=== PATIENT | female | born 1990 | race Caucasian/White ===

== ENCOUNTER → 2019-10-25 11:59 | Outpatient (CLI) | payer SELFPAY ==
[2019-10-30 17:43] LABS: HPV Reflexed? NOT INDICATED
== END ==
PROVIDERS: Visit Provider Obstetrics & Gynecology
DX: Z12.4 Encounter for screening for malignant neoplasm of cervix (principal)
CPT/HCPCS: 88175; G0145

== ENCOUNTER 2019-12-24 20:00 | Inpatient (IN) | payer MEDICAID, SELFPAY ==
[2019-12-24 20:02] VITALS: BP 133/76; PULSE 104; RESP 15; TEMP 36.8; O2SAT 100; BMI 20.5
--- NOTE | 2019-12-24 20:28 | US_ITS ---
STUDY: FIRST TRIMESTER OBSTETRICAL ULTRASOUND REASON FOR EXAM: Female, 29 years old BLEEDING W/ [place] [address] LMP: October 19, 2019 TECHNIQUE: Transvaginal TECHNICAL QUALITY: Adequate. PRIOR ULTRASOUND: None. FINDINGS: There is no demonstrated intrauterine gestational sac. The uterus measures 7.3 x 5.1 x 4.7 cm. The endometrial stripe is echogenic and measures 2.0 cm. There is complex fluid within the region of the right adnexa. The right ovary is not clearly visualized. The left ovary measures 6.7 x 5.3 x 3.4 cm. Within the left adnexa there is a round echogenic focus measuring 4.4 x 5.1 x 3.5 cm with peripheral vascularity and a central anechoic irregular focus. US/Transvaginal w/Preg US IMPRESSION: Findings highly suspicious for an ectopic within the left adnexa. Complex free fluid concerning for hemoperitoneum. N.B. : The above information has been verbally conveyed by Ellen Dockery MD to Jeanne Madrid MD, on 12/24/2019 23:16:54 (ET). Electronically Signed: Ellen Dockery MD at 23:18 EST Tel , Service support ,
--- NOTE | 2019-12-24 20:31 | ED.VISSUMM ---
- ER Visit Summary Date of Service: 12/24/19 Chief Complaint: Vaginal bleeding and History of Present Illness: The patient is a 29 F presenting with vaginal bleeding in . She started spotting around 11 AM this morning. She is approximately 10 weeks . She is G3, P0, Ab2. She states she has miscarried around 9 to 10 weeks previously. She has never been in the hospital when she miscarried. No history of D&C. She states her blood type is O- but she was told she does not need RhoGam because her significant other's blood type is A negative. Physical Examination: Vitals are stable. Patient is afebrile. Alert no acute distress. HEENT exam is unremarkable. Neck is supple. Lungs are clear and equal bilaterally. Heart is regular and tachycardic Abdomen is soft diffuse abdominal tenderness with voluntary guarding, no rebound Extremities are unremarkable. Skin is warm and dry. No focal neurologic deficit. Remainder of exam is unremarkable. Emergency Department Course and Treatment: Patient was given morphine, Zofran IV. [place] [id number]. Blood type O-. Pelvic ultrasound shows findings highly suspicious for an ectopic within the left adnexa. Complex free fluid concerning for hemoperitoneum. Discussed with Dr. Orozco. He will evaluate the patient in the ED. 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 It may contain incorrect words, spelling, and punctuation that were not noted in review of the chart prior to signing ED Disposition - Plan for ED Patient: Referrals: NOT,DEFINED [NON-STAFF] -
[2019-12-24] MEDS: Ondansetron 4 MG/2 ML Vial IV (20:48)
[2019-12-24] MEDS: Morphine 4 MG/ML Syringe IV (20:48)
[2019-12-24 20:49] LABS: Absolute Lymphocyte Count 1.66 X10^3/uL (0.83-4.51); Basophil# 0.02 X10^3/uL; Basophil% 0.2 % (0-1); Eosinophils% 1.2 % (0-5); Hematocrit 35.7 % (37-47); Hemoglobin 12.3 g/dL (12.0-15.0); Lymphocyte # 1.66 X10^3/ul (4.0); Mean Corp Hgb Conc 34.5 g/dL (32-36); Mean Corpuscular Hgb 30.6 pg (27.0-32.0); Mean Corpuscular Volume 88.8 fL (81-99); Mean Platelet Vol. 9.9 fl (6.2-12.0); Monocyte# 0.45 X10^3/uL; Monocyte% 5.4 % (0-10); NRBC Flagged by Analyzer 0 % (0-5); Neutrophil # 6.01 X10^3/uL (2.7-7.7); Neutrophil % 72.7 % (47-70); Platelet Count 282 K/mm3 (150-450); RBC Distribution Width CV 12.1 % (11.6-14.6); RBC Distribution Width SD 39.3 fl (35.1-43.9); Red Blood Count 4.02 M/mm3 (4.2-5.4); White Blood Count 8.3 K/mm3 (4.4-11.0)
[2019-12-24 21:35] LABS: hCG Titer Quant., Serum 10058 mIU/mL (1-3)
[2019-12-24 22:02] VITALS: BP 116/73; PULSE 82; RESP 16; O2SAT 100
[2019-12-24] MEDS: 0.9% Normal Saline 1,000 ML 999 ML IV (23:38)
[2019-12-24 23:50] LABS: Anion Gap 9 (5-15); BUN 12 mg/dL (7-18); BUN/Creat Ratio 17.4 RATIO (10-20); Calcium,Total 9.4 mg/dL (8.5-10.1); Chloride 107 mmol/L (98-107); Creatinine, Serum 0.69 mg/dL (0.55-1.02); EST Glomerular Filtration Rate 108 mL/min (>60); Est Glom Filt Rate - Afr Amer 130 mL/min (>60); Glucose 84 mg/dL (74-106); Potassium 3.5 mmol/L (3.5-5.1); Sodium Level 141 mmol/L (136-145)
[2019-12-25] VITALS (18 sets, daily range): BP systolic 102–138; BP diastolic 60–80; PULSE 79–112; RESP 13–20; TEMP 36.4–38.2; O2SAT 97–100; BMI 20.5; BMI 21.1
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
[2019-12-25 02:48] LABS: Mean Corp Hgb Conc 33.3 g/dL (32-36); Mean Corpuscular Hgb 30.5 pg (27.0-32.0); Mean Corpuscular Volume 91.4 fL (81-99); Platelet Count 228 K/mm3 (150-450); RBC Distribution Width CV 12.6 % (11.6-14.6); RBC Distribution Width SD 41.6 fl (35.1-43.9); Red Blood Count 1.97 M/mm3 (4.2-5.4); White Blood Count 22.2 K/mm3 (4.4-11.0)
[2019-12-25 02:49] LABS: Scan Indicated on CBC? Y/N NO
[2019-12-25] MEDS: Ropivacaine 0.5% 30 ML Vial (03:07)
--- NOTE | 2019-12-25 03:12 | PCM.OPRPT ---
Report of Operation Date of Procedure: 12/25/19 Pre-Operative Diagnosis: Ruptured Right Ectopic Post-Operative Diagnosis: Ruptured Right Ectopic and Implantation Left Tube; Bilateral Hydrosalpinx; Adhesions Surgery/Procedure Performed:: Diagnostic Laparoscopy, Removal of Ectopic , Bilateral Salpingectomy, Lysis of Adhesions, Appendectomy (per Bharti) Description of Surgical Findings:: Bilateral 4 to 5 cm hydrosalpinx, rupture of left fallopian tube with hemorrhage and 2 cm bulge approximately 2 cm from the uterine fundus. Large placental tissue collection covering left ovary and left fallopian tube with hemorrhage. Hydrosalpinx of left fallopian tube to 3 to 4 cm. Adhesions of omentum to anterior abdominal wall forming a curtain. Adhesions of appendix to right anterior abdominal wall near the omental adhesion insertion. Approximately 2 L of blood in the abdomen upon entry into the peritoneal cavity. service captain: Yessi Richardson Type of Anesthesia:: General - Endotracheal Anesthesiologist: Dannie Orozco Specimen's removed: Ectopic and portions of bilateral fallopian tubes in pieces. Appendix. Drains: Kenny to straight drain Estimated Blood Loss (mL): 2000 cc Fluids Replaced: Crystalloid and 2 units of packed red blood cells Description of Procedure: Surgeon: Florencio Orozco MD, FACOG Intraoperative Consult: Maximino Hay MD, FACS Indications: This is a 29 year old patient 3 para 0 AB 2 who has the above diagnosis who presented to the emergency room this evening with a ruptured ectopic . Her hemoglobin was 12.2 but quantitative beta-hCG was approximately 10,000. She was in marked pain and ultrasound confirmed a ruptured ectopic . She has been counseled regarding the risk and indications of this procedure including the possibility of bleeding, infection, and injury to surrounding structures such as bowel and bladder and desire that we proceed. All questions were answered to consider the patient well-informed. Procedure: The patient was taken to the operating room where after induction of general anesthesia, she was placed in the dorsolithotomy position and prepped and draped in the usual sterile fashion. The bladder was drained of approximately 50 cc of clear yellow urine with a catheter. Anterior cervix was grasped with the tenaculum. Conn cannula was placed and attention was turned toward the laparoscopic portion of the procedure. Approximately 20 cc of half percent ropivacaine was injected subumbilically, suprapubically and midway between. A 5 mm bladeless trocar was placed subumbilically and intraperitoneal placement confirmed. A marked amount of intraperitoneal blood was noted. After CO2 insufflation was complete, a 5 mm bladeless trocar was introduced suprapubically. This trocar was eventually converted to a 10/12 mm blade less port and a 5 mm blade less port was placed midway between these 2 ports. The above findings were noted. Attempts were made to identify the source of bleeding in the pelvis and it was felt that the majority was coming from the right fallopian tube which had a bulge in the center and it appeared had blown apart in the mid section. Enseal device was used to ligate the mesosalpinx to the uterus. This slowed down the bleeding somewhat but on examination in the cul-de-sac there was noted be a large amount of placental tissue present with bleeding of the left fallopian tube and ovary as well. This tissue was removed in pieces and the cul-de-sac continued to have some oozing. At this point, to get better visualization, the omental adhesions which had been forming a curtain across most of the area were taken down using the Enseal device. It was at this point in time that we discovered that the appendix was densely adhered to the anterior abdominal wall. General surgery was called and we continue to suction remaining blood out of the pelvis. Upon arrival of the general surgeon the appendix was removed and is dictated separately in his note. General surgery continue to look for sources of bleeding as there remained quite a bit of blood in the abdomen. It was felt that any remaining bleeding was confined to the oozing in the cul-de-sac. The bleeding in the cul-de-sac had subsided but was still oozing. FloSeal was used across this area to help with hemostasis and laparoscopic instruments with as much CO2 gas as possible was removed. Incisions were closed with interrupted 4-0 Monocryl suture. Vaginal instruments, which had been placed at the beginning of the case which included a con cannula were removed. A Kenny catheter was placed to help with postoperative management. About three [address]s the way through the procedure the patient's hemoglobin was checked and it was approximately 6.0. Given this 2 units of packed red blood cells were given in the course of the surgery and we plan ICU management postoperatively given that there continues to be some possible oozing at the completion of the procedure. Unfortunately it was necessary to remove both fallopian tubes but they were both badly damaged and both hemorrhaging. Patient tolerated procedure well was taken to recovery room in satisfactory condition sponge instrument and needle counts were all reportedly correct. Estimated blood loss for the case was 2000 cc. There were no apparent complications of the surgery. Specimens to pathology was bilateral tubes and ectopic . Grafts/Implants Used: None - Complications None - Admit VTE Documentation VTE Present on Admission: Yes VTE Mechan Device Prophylaxis: SCD's
[2019-12-25 03:40] LABS: Absolute Lymphocyte Count 0.91 X10^3/uL (0.83-4.51); Absolute Neutrophil Count 13.2 X10^3/uL (2.0-7.7); Basophil# 0.02 X10^3/uL; Basophil% 0.1 % (0-1); Eosinophil# 0.02 X10^3/uL; Eosinophils% 0.1 % (0-5); Hemoglobin 8.3 g/dL (12.0-15.0); Lymphocyte # 0.91 X10^3/ul (4.0); Mean Corp Hgb Conc 33.2 g/dL (32-36); Mean Corpuscular Hgb 29.4 pg (27.0-32.0); Mean Corpuscular Volume 88.7 fL (81-99); Mean Platelet Vol. 9.9 fl (6.2-12.0); Monocyte# 0.82 X10^3/uL; Monocyte% 5.4 % (0-10); NRBC Flagged by Analyzer 0 % (0-5); Neutrophil # 13.21 X10^3/uL (2.7-7.7); Neutrophil % 87.9 % (47-70); Platelet Count 175 K/mm3 (150-450); RBC Distribution Width CV 12.8 % (11.6-14.6); RBC Distribution Width SD 41.2 fl (35.1-43.9); Red Blood Count 2.82 M/mm3 (4.2-5.4); White Blood Count 15.1 K/mm3 (4.4-11.0)
[2019-12-25 04:34] LABS: Hematocrit 29.2 % (37-47); Hemoglobin 9.8 g/dL (12.0-15.0)
[2019-12-25 04:42] LABS: International Normalized Ratio 1.4; Prothrombin Time (Protime)PT. 16.6 SECONDS (11.7-14.9)
[2019-12-25 04:43] LABS: Partial Thromboplast Time 20.8 Seconds (24.1-36.2)
[2019-12-25] MEDS: HYDROmorphone 0.5 MG/0.5 ML SYRINGE IV ×6 (04:43→21:47)
[2019-12-25] MEDS: 0.9% Normal Saline 1,000 ML 75 ML IV ×2 (04:44→16:26)
--- NOTE | 2019-12-25 05:33 | PCM.HP.STD ---
Problem List (1) Ruptured tubal of right fallopian tube Status: Acute (2) Acute blood loss anemia Status: Acute History of Present Illness Date of Admission: 12/25/19 Chief Complaint: Acute ruptured right tubal , acute blood loss anemia The patient is a 29 year old F was seen in the emergency room at [facility] with chief complaint of abdominal pain. Patient was approximately 10 weeks , she was seen acutely in consultation by ULTRASOUND TECHNOL surgery, and ultrasound was obtained which was highly suspicious for ectopic within the left adnexa with findings concerning for hemoperitoneum. Patient stated that her abdominal pain began approximately 24 hours prior to being seen and was located in the left lower quadrant. Patient was taken to surgery where there was noted to be a large amount of blood in the peritoneum along with a right tubal rupture from a tubal . Surgery with laparoscopy was performed which included removal of both fallopian tubes, removal of the ectopic , lysis of adhesion, and an appendectomy by Dr. Hay. Estimated blood loss was high at 2000 cc, patient was given 2 units of packed red blood cells and IV fluids, hospitalist service was contacted to admit the patient to ICU for further care due to concerns by the ULTRASOUND TECHNOL surgeon (Dr. Orozco) of further bleeding. Patient was admitted to the ICU with general surgery and Dr. Orozco to consult, I did not feel that critical care medicine needed to see the patient. At the time of my examination in the ICU, patient appears to be in a slight amount of pain after being medicated with pain medicine, her was at the bedside and I talked with him also. Patient is tachycardic but her vital signs at this time are stable, repeat hemoglobin was 9.8 after the 2 units of packed red blood cells were administered. ICU orders were entered by me. 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 Lives: Spouse/ Significant Other Smoking Status: Never smoker Tobacco Use: Non-smoker Alcohol: None Drugs: None - *Family History Maternal History Items: No pertinent history Paternal History Items: No pertinent history Review of Systems Comment: Due to sedation from administered pain medications and immediate postop status, review of systems was unable to be obtained from the patient at this time, information was obtained from the patient's medical record VTE Information - Inpt Only VTE Present on Admission: No VTE Mechan Device Prophylaxis: SCD's VTE Pharm Prophylaxis ordered?: No Patient Problems: Active and Suspected Problems Ruptured tubal of right fallopian tube (Acute) Acute blood loss anemia (Acute) - Physical Exam Vitals/I&O's: Vital Signs Temp Pulse Resp BP Pulse Ox 98.4 F 96 15 111/74 98 12/25/19 04:10 12/25/19 05:00 12/25/19 05:00 12/25/19 05:00 12/25/19 05:00 Oxygen Delivery Method Room Air Weight: 55.8 kg Body Mass Index (BMI) 21.1 Intake and Output for Last 24 Hours 12/23/19 12/24/19 12/25/19 23:59 23:59 23:59 Intake Total 1000 / 1000 Output Total 250 / 250 Balance 750 / 750 General: Cooperative, Well developed, - - Patient is drowsy, she is able to answer some simple questions appropriately HEENT: Atraumatic, EOMI, Normocephalic Oral: Moist Mucosa Neck: Supple, No JVD, Trachea Midline, Thyroid Normal Size and Texture Lungs: Clear to auscultation, Normal air movement, No rhonchi, No wheeze, No rales Cardiovascular: Regular rate, Regular Rhythm, Normal S1, Normal S2, No murmurs, PMI Normal, No rub noted, No Gallop, Tachycardic Abdomen: Bowel Sounds Not Present Extremities: No clubbing, No cyanosis, No edema, Capillary Refill Less than 3 Seconds Skin: No rashes, No breakdown Neurological: Cranial nerves II-XII grossly intact, Neuro grossly intact, Sensory exam intact to light touch and pain Psych/Mental Status: - - Patient is somnolent, she answers some questions appropriately Laboratory Results 12/24/19 20:40: WBC 8.3, RBC 4.02 L, Hgb 12.3, Hct 35.7 L, MCV 88.8, MCH 30.6, MCHC 34.5, RDW Std Deviation 39.3, RDW Coeff of Sahzia 12.1, Plt Count 282, MPV 9.9, Immature Gran % (Auto) 0.500, Neut % (Auto) 72.7 H, Lymph % (Auto) 20.0, [place] % (Auto) 5.4, Eos % (Auto) 1.2, Baso % (Auto) 0.2, Absolute Neuts (auto) 6.0, Absolute Lymphs (auto) 1.66, Nucleated RBC % 0 12/24/19 20:40: HCG, Quant [id number] H 12/24/19 20:40: Blood Type TNP 12/24/19 20:40: Blood Type O NEGATIVE 12/24/19 20:40: Sodium 141, Potassium 3.5, Chloride 107, Carbon Dioxide 25.0, Anion Gap 9, BUN 12, Creatinine 0.69, Estim Creat Clear Calc 104.30, Est GFR (MDRD) Af Amer 130, Est GFR (MDRD) Non-Af 108, BUN/Creatinine Ratio 17.4, Glucose 84, Calcium 9.4 12/24/19 20:40: Blood Type TNP, Antibody Screen TNP 12/24/19 20:40: Antibody Screen NEGATIVE 12/24/19 20:40: Crossmatch See Detail 12/25/19 02:38: WBC 22.2 H, RBC 1.97 L, Hgb 6.0 L*, Hct 18.0 L, MCV 91.4, MCH 30.5, MCHC 33.3, RDW Std Deviation 41.6, RDW Coeff of Shazia 12.6, Plt Count 228, MPV 10.0 12/25/19 03:28: WBC 15.1 H, RBC 2.82 L, Hgb 8.3 L, Hct 25.0 L, MCV 88.7, MCH 29.4, MCHC 33.2, RDW Std Deviation 41.2, RDW Coeff of Shazia 12.8, Plt Count 175, MPV 9.9, Immature Gran % (Auto) 0.500, Neut % (Auto) 87.9 H, Lymph % (Auto) 6.0 L, [place] % (Auto) 5.4, Eos % (Auto) 0.1, Baso % (Auto) 0.1, Absolute Neuts (auto) 13.2 H, Absolute Lymphs (auto) 0.91, Nucleated RBC % 0 12/25/19 04:25: PT 16.6 H, INR 1.4, APTT 20.8 L 12/25/19 04:25: Hgb 9.8 L, Hct 29.2 L Current Medications Hydromorphone HCl (Dilaudid Inj) 0.5 mg IV Q3H PRN PRN PRN Reason: Pain Score 6-10/10 Last Admin: 12/25/19 04:43 Dose: 0.5 mg Documented by: Sodium Chloride () 1,000 mls @ 75 mls/hr IV .[id number] NATALI Last Admin: 12/25/19 04:44 Dose: 75 mls/hr Documented by: Cefotetan Disodium 1 gm/ (Sodium Chloride) 50 mls @ 100 mls/hr IV X1 ONE Stop: 12/25/19 12:29 Sodium Chloride () 250 mls @ 15 mls/hr IV .[id number] PRN PRN Reason: Saline Flush Sodium Chloride () 250 mls @ 15 mls/hr IV .[id number] PRN PRN Reason: Additional IVPB Infusion Ondansetron HCl (Zofran) 4 mg IV Q8H PRN PRN PRN Reason: NAUSEA/VOMITING Sodium Chloride () 10 - 40 ml IV UD PRN PRN Reason: SALINE FLUSH Assessment/Plan All Active Problems Ruptured tubal of right fallopian tube (Acute) Acute blood loss anemia (Acute) #1 acute blood loss anemia secondary to ruptured right tubal -status post bilateral salpingectomy, removal of ectopic , and appendectomy-at this time patient appears to be stable in ICU, every 4 hour H&H's were ordered, patient has blood that is typed and crossed in case she needs additional transfused units of packed red blood cells. #2 status post ruptured right tubal -postop day 0 bilateral salpingectomy, removal of ectopic , and appendectomy-Dr. Orozco and Dr. Hay will participate in her care Code Visit Inpatient E&M: 27552 In Hosp L3
--- NOTE | 2019-12-25 06:46 | PCM.OPRPT ---
Problem List (1) Ruptured tubal of right fallopian tube Status: Acute Report of Operation Date of Procedure: 12/25/19 Pre-Operative Diagnosis: Inflammation of appendix Post-Operative Diagnosis: Same Surgery/Procedure Performed:: Laparoscopic appendectomy Specimen's removed: Appendix Description of Procedure: I was called into the operating room by Dr. Orozco due to inflammation of the appendix during a laparoscopic ectopic removal. The patient had blood throughout the abdomen. The appendix was adhesed to the anterior abdominal wall and Dr. Orozco felt that it was too inflamed to leave and. The appendix was grasped and the mesoappendix was taken down with Enseal. A 45 mm stapler was used to come across the base the appendix it was placed into a bag and removed through the 12 mm port. There was good hemostasis at the staple line with no bleeding. For the remainder the note please see Dr. Orozoc's dictation.
[2019-12-25] MEDS: TITRATION PARAMETER CHANGE 1 EACH IV (06:56)
[2019-12-25] MEDS: 0.9% Saline Lock 10 ML Syringe IV ×2 (07:55→14:15)
[2019-12-25 08:04] LABS: Hematocrit 28.4 % (37-47); Hemoglobin 9.9 g/dL (12.0-15.0)
--- NOTE | 2019-12-25 08:12 | PCM.PN.SRG ---
Patient Problems: Active and Suspected Problems Ruptured tubal of right fallopian tube (Acute) Acute blood loss anemia (Acute) Subjective: Patient still in significant amount of pain. - Physical Exam Vitals/I&O's: Vital Signs Temp Pulse Resp BP Pulse Ox 98.4 F 103 H 16 108/74 98 12/25/19 04:10 12/25/19 07:00 12/25/19 07:00 12/25/19 07:00 12/25/19 07:00 Oxygen Delivery Method Room Air Weight: 123 lb 0.287 oz Body Mass Index (BMI) 21.1 Intake and Output for Last 24 Hours 12/23/19 12/24/19 12/25/19 23:59 23:59 23:59 Intake Total 1166.1 / 1166.1 Output Total 450 / 450 Balance 716.1 / 716.1 General: Alert, Oriented x3 Abdomen: Guarding, Tender - Diffusely tender with guarding Laboratory Results 12/24/19 20:40: WBC 8.3, RBC 4.02 L, Hgb 12.3, Hct 35.7 L, MCV 88.8, MCH 30.6, MCHC 34.5, RDW Std Deviation 39.3, RDW Coeff of Shazia 12.1, Plt Count 282, MPV 9.9, Immature Gran % (Auto) 0.500, Neut % (Auto) 72.7 H, Lymph % (Auto) 20.0, [place] % (Auto) 5.4, Eos % (Auto) 1.2, Baso % (Auto) 0.2, Absolute Neuts (auto) 6.0, Absolute Lymphs (auto) 1.66, Nucleated RBC % 0 12/24/19 20:40: HCG, Quant 97090 H 12/24/19 20:40: Blood Type TNP 12/24/19 20:40: Blood Type O NEGATIVE 12/24/19 20:40: Sodium 141, Potassium 3.5, Chloride 107, Carbon Dioxide 25.0, Anion Gap 9, BUN 12, Creatinine 0.69, Estim Creat Clear Calc 104.30, Est GFR (MDRD) Af Amer 130, Est GFR (MDRD) Non-Af 108, BUN/Creatinine Ratio 17.4, Glucose 84, Calcium 9.4 12/24/19 20:40: Blood Type TNP, Antibody Screen TNP 12/24/19 20:40: Antibody Screen NEGATIVE 12/24/19 20:40: Crossmatch See Detail 12/25/19 02:38: WBC 22.2 H, RBC 1.97 L, Hgb 6.0 L*, Hct 18.0 L, MCV 91.4, MCH 30.5, MCHC 33.3, RDW Std Deviation 41.6, RDW Coeff of Shazia 12.6, Plt Count 228, MPV 10.0 12/25/19 03:28: WBC 15.1 H, RBC 2.82 L, Hgb 8.3 L, Hct 25.0 L, MCV 88.7, MCH 29.4, MCHC 33.2, RDW Std Deviation 41.2, RDW Coeff of Shazia 12.8, Plt Count 175, MPV 9.9, Immature Gran % (Auto) 0.500, Neut % (Auto) 87.9 H, Lymph % (Auto) 6.0 L, [place] % (Auto) 5.4, Eos % (Auto) 0.1, Baso % (Auto) 0.1, Absolute Neuts (auto) 13.2 H, Absolute Lymphs (auto) 0.91, Nucleated RBC % 0 12/25/19 04:25: PT 16.6 H, INR 1.4, APTT 20.8 L 12/25/19 04:25: Hgb 9.8 L, Hct 29.2 L 12/25/19 07:55: Hgb 9.9 L, Hct 28.4 L Current Medications Hydromorphone HCl (Dilaudid Inj) 0.5 - 1 mg IV Q3H PRN PRN PRN Reason: Pain Score 6-10/10 Last Admin: 12/25/19 07:54 Dose: 0.5 mg Documented by: Sodium Chloride () 1,000 mls @ 75 mls/hr IV .[id number] NATALI Last Infusion: 12/25/19 07:00 Dose: 75 mls/hr Documented by: Cefotetan Disodium 1 gm/ (Sodium Chloride) 50 mls @ 100 mls/hr IV X1 ONE Stop: 12/25/19 12:29 Sodium Chloride () 250 mls @ 15 mls/hr IV .[id number] PRN PRN Reason: Saline Flush Sodium Chloride () 250 mls @ 15 mls/hr IV .[id number] PRN PRN Reason: Additional IVPB Infusion Ondansetron HCl (Zofran) 4 mg IV Q8H PRN PRN PRN Reason: NAUSEA/VOMITING Sodium Chloride () 10 - 40 ml IV UD PRN PRN Reason: SALINE FLUSH Last Admin: 12/25/19 07:55 Dose: 10 ml Documented by: Medical Necessity - Tobacco Use Smoking Status: Never smoker Tobacco Use: Non-smoker Assessment/Plan All Active Problems Ruptured tubal of right fallopian tube (Acute) Acute blood loss anemia (Acute) 29-year-old female with ectopic and hemorrhage 1. I was called into the operating room to perform an appendectomy. The patient has significant amount of blood in her abdomen. She received 2 units of blood and hemoglobin appears to be stable but she is still in a lot of pain and still having guarding her lower abdomen. Continue serial H&H checks. Patient will likely get an ileus due to the amount of blood in her abdomen. Continue n.p.o. with ice chips and sips until she is passing flatus. Maximino Hay MD Pager: [facility] [address] [place] [address], [address] [place] [address] Office:
--- NOTE | 2019-12-25 08:52 | NURSING ---
placed in OR
--- NOTE | 2019-12-25 09:59 | CASEMGMT ---
RN CM Assessment Note Presentation: Ruptured tubal , acute blood loss anemia Intro role of CM and purpose of RN CM assessment to patient and her , Demographics, PCP and Pharmacy verified. Pt remains sleepy, able to participate in assessment. at bedside and attentivie to patient. PCP: No PCP. List of physicians given to patient and discussed process for establishing with new physician. Specialists: Dr. Orozco OB/GNY; Dr. Hay, surgeon- anticipate pt will f/u with Dr. Orozco and Dr. Hay on dc. states he will assist with this. Preferred Pharmacy: [facility] Insurance: Self pay Prescription Benefit: none. LNOK: Aubrey Living Arrangements: Lives independently with her . No DME, and no anticipated care needs on dc. Transportation: drives DME: none HHC: none Patient DC goals: Home DC PLAN: Home Nadya KC RN ACM
--- NOTE | 2019-12-25 10:10 | FAL_PTH ---
PATIENT: BUDDY ANGELA LOC: MS3 U#:[id number] AGE/SX: 29/F [place] [facility] [place]/[address]: Dr. Madeleine Kirkpatrick MD : 1990 BED: 1 DIS: 12/29/2019 SPEC #: [id number] RECD: 12/25/19 13:22 STATUS: LUCINA REDonal #: [id number] MICHAEL: 12/25/19 10:[address]: Florencio Orozco DEPT: SURGICAL PATHOLOGY RECD BY: Flex Mccormick ENTERED: 12/25/19 13:46 SP TYPE: ECTOPIC OTHR DR: MD Dr. Billy Olivera MD No Primary Care Phys Tissues: A - Right fallopian tube B - ECTOPIC PREG C - Appendix, NOS Procedures: Surgery Specimen Level III Surgery Specimen Level IV HEADER OPERATION: Laparoscopic removal ectopic , salpingectomy PRE-OP DIAGNOSIS: Ectopic left fallopian tube TISSUE SUBMITTED: A - Right fallopian tube, B - Left fallopian tube ectopic , C - Appendix MICROSCOPIC DIAGNOSIS A. Right fallopian tube, salpingectomy: Consistent with endometriosis. B. Left fallopian tube, salpingectomy: Chorionic villi, decidualized stroma and trophoblastic cells consistent with intratubal . C. Appendix, appendectomy: Early acute appendicitis. AM: 12/26/19 MICROSCOPIC DESCRIPTION Slides are reviewed. GROSS DESCRIPTION A - Received in fixative is one container labeled with the patient's name and designated right fallopian tube. The specimen consists of multiple irregular fragments of tubular and non-tubular soft tissue measuring 5 x 4 x 1 cm. A distinct fimbriated end is not identified. The specimen is sectioned and totally submitted in two cassettes. / AM: 12/25/19 B - Received in fixative is one container labeled with the patient's name and designated left fallopian tube and ectopic. The specimen consists of multiple (greater than 15) irregular fragments of reddish-carvajal soft tissue that in aggregate measure 10.5 x 8 x 1 cm. One tubular fragment is present measuring 3.7 cm and with a diameter of 0.8 cm. A distinct fimbriated end is not identified. Watch And Clock Repair Clerk portions are submitted in four cassettes. / AM: 12/25/19 C - Received is one container labeled with the patient's name and designated appendix. The specimen consists of an appendix measuring 4.5 cm in length and 0.7 cm in diameter. At the tip is adipose tissue attached measuring 2 x 1.5 x 0.5 cm. The serosal surface is unremarkable. No obvious perforation is noted. Sections reveal pinpoint lumen. No fecalith is identified. The attached periappendiceal adipose tissue does not reveal any mass lesion. The entire specimen is submitted in three cassettes as follows: 1 - appendix tip and proximal portion, 2 - rest of the appendix, 3 - periappendiceal adipose tissue. / SJ:rg 12/25/19 TC:5 CPT: 58929, 51449 x2
--- NOTE | 2019-12-25 10:29 | CASEMGMT ---
Social Work Note Pt is listed as self-pay. SW reviewed PFS notes, PFS will attempt to see pt later this afternoon as pt just had surgery this morning. SW placed a call to PFS and left message informing them that per CM pt would like to speak with someone regarding medicaid application and pt lost PFS paperwork from the weekend and would like copies. PFS to see pt regarding self-pay. Bobbi Ibrahim ROTARY FURNACE TENDER, WELFARE INTERVIEWER
--- NOTE | 2019-12-25 12:19 | PN.OBGYN_ITS ---
Patient Problems: Active and Suspected Problems Ruptured tubal of right fallopian tube (Acute) Acute blood loss anemia (Acute) Subjective: Patient remained stable in the ICU with blood counts stabilized. Current plan is to transfer the patient to the [facility] floor later this afternoon. Patient continues to have pain controlled with IV narcotics. - Physical Exam Vitals/I&O's: Vital Signs Temp Pulse Resp BP Pulse Ox 98.5 F 105 H 20 H 113/72 100 12/25/19 08:00 12/25/19 11:00 12/25/19 11:00 12/25/19 11:00 12/25/19 11:00 Oxygen Delivery Method Room Air Weight: 123 lb 0.287 oz Body Mass Index (BMI) 21.1 Intake and Output for Last 24 Hours 12/23/19 12/24/19 12/25/19 23:59 23:59 23:59 Intake Total 1527.35 / 1527.35 Output Total 625 / 625 Balance 902.35 / 902.35 Comment: Wounds CDI. Good urine output. Hemoglobin stable for 2 units. Laboratory Results 12/24/19 20:40: WBC 8.3, RBC 4.02 L, Hgb 12.3, Hct 35.7 L, MCV 88.8, MCH 30.6, MCHC 34.5, RDW Std Deviation 39.3, RDW Coeff of Shazia 12.1, Plt Count 282, MPV 9.9, Immature Gran % (Auto) 0.500, Neut % (Auto) 72.7 H, Lymph % (Auto) 20.0, [place] % (Auto) 5.4, Eos % (Auto) 1.2, Baso % (Auto) 0.2, Absolute Neuts (auto) 6.0, Absolute Lymphs (auto) 1.66, Nucleated RBC % 0 12/24/19 20:40: HCG, Quant 06944 H 12/24/19 20:40: Blood Type TNP 12/24/19 20:40: Blood Type O NEGATIVE 12/24/19 20:40: Sodium 141, Potassium 3.5, Chloride 107, Carbon Dioxide 25.0, Anion Gap 9, BUN 12, Creatinine 0.69, Estim Creat Clear Calc 104.30, Est GFR (MDRD) Af Amer 130, Est GFR (MDRD) Non-Af 108, BUN/Creatinine Ratio 17.4, Glucose 84, Calcium 9.4 12/24/19 20:40: Blood Type TNP, Antibody Screen TNP 12/24/19 20:40: Antibody Screen NEGATIVE 12/24/19 20:40: Crossmatch See Detail 12/25/19 02:38: WBC 22.2 H, RBC 1.97 L, Hgb 6.0 L*, Hct 18.0 L, MCV 91.4, MCH 30.5, MCHC 33.3, RDW Std Deviation 41.6, RDW Coeff of Shazia 12.6, Plt Count 228, MPV 10.0 12/25/19 03:28: WBC 15.1 H, RBC 2.82 L, Hgb 8.3 L, Hct 25.0 L, MCV 88.7, MCH 29.4, MCHC 33.2, RDW Std Deviation 41.2, RDW Coeff of Shazia 12.8, Plt Count 175, MPV 9.9, Immature Gran % (Auto) 0.500, Neut % (Auto) 87.9 H, Lymph % (Auto) 6.0 L, [place] % (Auto) 5.4, Eos % (Auto) 0.1, Baso % (Auto) 0.1, Absolute Neuts (auto) 13.2 H, Absolute Lymphs (auto) 0.91, Nucleated RBC % 0 12/25/19 04:25: PT 16.6 H, INR 1.4, APTT 20.8 L 12/25/19 04:25: Hgb 9.8 L, Hct 29.2 L 12/25/19 07:55: Hgb 9.9 L, Hct 28.4 L Current Medications Hydromorphone HCl (Dilaudid Inj) 0.5 - 1 mg IV Q3H PRN PRN PRN Reason: Pain Score 6-10/10 Last Admin: 12/25/19 11:12 Dose: 0.5 mg Documented by: Sodium Chloride () 1,000 mls @ 75 mls/hr IV .[id number] NATALI Last Infusion: 12/25/19 11:49 Dose: 0 mls/hr Documented by: Cefotetan Disodium 1 gm/ (Sodium Chloride) 50 mls @ 100 mls/hr IV X1 ONE Stop: 12/25/19 12:29 Last Admin: 12/25/19 11:48 Dose: 100 mls/hr Documented by: Sodium Chloride () 250 mls @ 15 mls/hr IV .[id number] PRN PRN Reason: Saline Flush Sodium Chloride () 250 mls @ 15 mls/hr IV .[id number] PRN PRN Reason: Additional IVPB Infusion Ondansetron HCl (Zofran) 4 mg IV Q8H PRN PRN PRN Reason: NAUSEA/VOMITING Sodium Chloride () 10 - 40 ml IV UD PRN PRN Reason: SALINE FLUSH Last Admin: 12/25/19 07:55 Dose: 10 ml Documented by: Medical Necessity - Tobacco Use Smoking Status: Never smoker Tobacco Use: Non-smoker Assessment/Plan All Active Problems Ruptured tubal of right fallopian tube (Acute) Acute blood loss anemia (Acute) Patient is stable. Discussed surgery at length and possible avenues to achieve . We will continue to monitor and anticipate release tomorrow Wednesday. N.p.o. except for ice chips and sips of fluid for now as ileus is an ticipated. We will repeat hemoglobin this evening and tomorrow.
[2019-12-25 13:31] LABS: Pathologist Review Reviewed
[2019-12-25 13:41] LABS: Hematocrit 27.1 % (37-47); Hemoglobin 9.3 g/dL (12.0-15.0)
[2019-12-25] MEDS: oxyCODONE 5 MG Tablet PO (16:26)
[2019-12-25 21:29] LABS: Hematocrit 26.6 % (37-47); Hemoglobin 9.3 g/dL (12.0-15.0)
[2019-12-26] VITALS (9 sets, daily range): BP systolic 114–124; BP diastolic 64–77; PULSE 93–106; RESP 16–18; TEMP 36.8–37.6; O2SAT 95–99
[2019-12-26] MEDS: HYDROmorphone 0.5 MG/0.5 ML SYRINGE IV (01:06)
[2019-12-26] MEDS: Ondansetron 4 MG/2 ML Vial IV ×2 (01:07→13:41)
--- NOTE | 2019-12-26 05:00 | NURSING ---
pt encourage to walk. pt walked around the unit x1. pt tolerated it well
[2019-12-26] MEDS: 0.9% Normal Saline 1,000 ML 75 ML IV ×2 (05:05→19:59)
[2019-12-26 05:21] LABS: Bedside Glucose 126 mg/dL (70-110)
--- NOTE | 2019-12-26 05:30 | NURSING ---
pt vomited 250cc green emesis. pt said she feels better since she vomited
[2019-12-26 06:51] LABS: Absolute Lymphocyte Count 0.54 X10^3/uL (0.83-4.51); Absolute Neutrophil Count 10.8 X10^3/uL (2.0-7.7); Basophil# 0.03 X10^3/uL; Basophil% 0.3 % (0-1); Hematocrit 25.9 % (37-47); Hemoglobin 8.9 g/dL (12.0-15.0); Lymphocyte # 0.54 X10^3/ul (4.0); Lymphocyte % 4.5 % (19-41); Mean Corp Hgb Conc 34.4 g/dL (32-36); Mean Corpuscular Hgb 29.2 pg (27.0-32.0); Mean Corpuscular Volume 84.9 fL (81-99); Mean Platelet Vol. 10.3 fl (6.2-12.0); Monocyte# 0.47 X10^3/uL; Monocyte% 3.9 % (0-10); NRBC Flagged by Analyzer 0 % (0-5); Neutrophil # 10.79 X10^3/uL (2.7-7.7); Neutrophil % 90.6 % (47-70); POSITIVE DIFFERENTIAL YES; Platelet Count 203 K/mm3 (150-450); RBC Distribution Width CV 13.7 % (11.6-14.6); RBC Distribution Width SD 42.5 fl (35.1-43.9); Red Blood Count 3.05 M/mm3 (4.2-5.4); White Blood Count 11.9 K/mm3 (4.4-11.0)
[2019-12-26 07:02] LABS: Anion Gap 5 (5-15); BUN 8 mg/dL (7-18); BUN/Creat Ratio 14.2 RATIO (10-20); Calcium,Total 8.3 mg/dL (8.5-10.1); Chloride 108 mmol/L (98-107); Creatinine, Serum 0.56 mg/dL (0.55-1.02); Differential Indicated SCAN CRITERIA MET; EST Glomerular Filtration Rate 135 mL/min (>60); Est Glom Filt Rate - Afr Amer 164 mL/min (>60); Estimated Creatinine Clearance 129.15 ml/min; Glucose 130 mg/dL (74-106); Potassium 3.9 mmol/L (3.5-5.1); Sodium Level 138 mmol/L (136-145)
[2019-12-26 07:12] LABS: Differential Comment SCANNED
--- NOTE | 2019-12-26 07:55 | PCM.PN.SRG ---
Patient Problems: Active and Suspected Problems Ruptured tubal of right fallopian tube (Acute) Acute blood loss anemia (Acute) Subjective: Patient is complaining of nausea and abdominal pain. No flatus. - Physical Exam Vitals/I&O's: Vital Signs Temp Pulse Resp BP Pulse Ox 98.5 F 93 17 119/77 95 12/26/19 05:00 12/26/19 05:00 12/26/19 05:00 12/26/19 05:00 12/26/19 05:00 Oxygen Delivery Method Room Air Weight: 123 lb 7.342 oz Body Mass Index (BMI) 21.1 Intake and Output for Last 24 Hours 12/24/19 12/25/19 12/26/19 23:59 23:59 23:59 Intake Total 2087.35 / 2087.35 978.75 / 978.75 Output Total 1325 / 1325 950 / 950 Balance 762.35 / 762.35 28.75 / 28.75 General: Alert, Oriented x3 Cardiovascular: Regular rate, Regular Rhythm Abdomen: Distended, Tender Laboratory Results 12/25/19 02:38: Diff Path Review Reviewed 12/25/19 07:55: Hgb 9.9 L, Hct 28.4 L 12/25/19 13:35: Hgb 9.3 L, Hct 27.1 L 12/25/19 21:23: Hgb 9.3 L, Hct 26.6 L 12/26/19 05:08: POC Glucose 126 H 12/26/19 06:15: WBC 11.9 H, RBC 3.05 L, Hgb 8.9 L, Hct 25.9 L, MCV 84.9, MCH 29.2, MCHC 34.4, RDW Std Deviation 42.5, RDW Coeff of Shazia 13.7, Plt Count 203, MPV 10.3, Immature Gran % (Auto) 0.700, Neut % (Auto) 90.6 H, Lymph % (Auto) 4.5 L, [place] % (Auto) 3.9, Eos % (Auto) 0.0, Baso % (Auto) 0.3, Absolute Neuts (auto) 10.8 H, Absolute Lymphs (auto) 0.54 L, Nucleated RBC % 0, Differential Comment SCANNED 12/26/19 06:15: Sodium 138, Potassium 3.9, Chloride 108 H, Carbon Dioxide 25.0, Anion Gap 5, BUN 8, Creatinine 0.56, Estim Creat Clear Calc 129.15, Est GFR (MDRD) Af Amer 164, Est GFR (MDRD) Non-Af 135, BUN/Creatinine Ratio 14.2, Glucose 130 H, Calcium 8.3 L Current Medications Hydromorphone HCl (Dilaudid Inj) 0.5 - 1 mg IV Q3H PRN PRN PRN Reason: Pain Score 6-10/10 Last Admin: 12/26/19 01:06 Dose: 0.5 mg Documented by: Sodium Chloride () 1,000 mls @ 75 mls/hr IV .[id number] NATALI Last Admin: 12/26/19 05:05 Dose: 75 mls/hr Documented by: Sodium Chloride () 250 mls @ 15 mls/hr IV .[id number] PRN PRN Reason: Saline Flush Sodium Chloride () 250 mls @ 15 mls/hr IV .[id number] PRN PRN Reason: Additional IVPB Infusion Ondansetron HCl (Zofran) 4 mg IV Q8H PRN PRN PRN Reason: NAUSEA/VOMITING Last Admin: 12/26/19 01:07 Dose: 4 mg Documented by: Oxycodone HCl (Oxyir) 5 mg PO Q6H PRN PRN PRN Reason: Pain Score 6-10/10 Last Admin: 12/25/19 16:26 Dose: 5 mg Documented by: Sodium Chloride () 10 - 40 ml IV UD PRN PRN Reason: SALINE FLUSH Last Admin: 12/25/19 14:15 Dose: 10 ml Documented by: Medical Necessity - Tobacco Use Smoking Status: Never smoker Tobacco Use: Non-smoker Assessment/Plan All Active Problems Ruptured tubal of right fallopian tube (Acute) Acute blood loss anemia (Acute) 29-year-old female status post ectopic evacuation and appendectomy 1. Patient is having a postoperative ileus due to hemoperitoneum. Patient is dye range tender and distended with nausea. She is not passing any flatus. Continue n.p.o. until she starts having flatus and her abdominal pain improves. 2. Hemoglobin stable Maximino Hay MD Pager: [facility] [address] [place] [address], [address] [place] [address] Office:
--- NOTE | 2019-12-26 08:18 | PN.OBGYN_ITS ---
Patient Problems: Active and Suspected Problems Ruptured tubal of right fallopian tube (Acute) Acute blood loss anemia (Acute) Subjective: Patient without complaints. Tenderness less than yesterday. Up to bathroom with some assistance. Reports some flatus. Still somewhat weak. Minimal vaginal bleeding. Discussed need for oral iron when she goes home to help recover her blood counts. - Physical Exam Vitals/I&O's: Vital Signs Temp Pulse Resp BP Pulse Ox 98.5 F 93 17 119/77 95 12/26/19 05:00 12/26/19 05:00 12/26/19 05:00 12/26/19 05:00 12/26/19 05:00 Oxygen Delivery Method Room Air Weight: 123 lb 7.342 oz Body Mass Index (BMI) 21.1 Intake and Output for Last 24 Hours 12/24/19 12/25/19 12/26/19 23:59 23:59 23:59 Intake Total 2087.35 / 2087.35 978.75 / 978.75 Output Total 1325 / 1325 950 / 950 Balance 762.35 / 762.35 28.75 / 28.75 Comment: Wounds CDI. Good urine output. Hemoglobin and creatinine okay. Laboratory Results 12/25/19 02:38: Diff Path Review Reviewed 12/25/19 13:35: Hgb 9.3 L, Hct 27.1 L 12/25/19 21:23: Hgb 9.3 L, Hct 26.6 L 12/26/19 05:08: POC Glucose 126 H 12/26/19 06:15: WBC 11.9 H, RBC 3.05 L, Hgb 8.9 L, Hct 25.9 L, MCV 84.9, MCH 29.2, MCHC 34.4, RDW Std Deviation 42.5, RDW Coeff of Shazia 13.7, Plt Count 203, MPV 10.3, Immature Gran % (Auto) 0.700, Neut % (Auto) 90.6 H, Lymph % (Auto) 4.5 L, [place] % (Auto) 3.9, Eos % (Auto) 0.0, Baso % (Auto) 0.3, Absolute Neuts (auto) 10.8 H, Absolute Lymphs (auto) 0.54 L, Nucleated RBC % 0, Differential Comment SCANNED 12/26/19 06:15: Sodium 138, Potassium 3.9, Chloride 108 H, Carbon Dioxide 25.0, Anion Gap 5, BUN 8, Creatinine 0.56, Estim Creat Clear Calc 129.15, Est GFR (MDRD) Af Amer 164, Est GFR (MDRD) Non-Af 135, BUN/Creatinine Ratio 14.2, Glucose 130 H, Calcium 8.3 L Current Medications Hydromorphone HCl (Dilaudid Inj) 0.5 - 1 mg IV Q3H PRN PRN PRN Reason: Pain Score 6-10/10 Last Admin: 12/26/19 01:06 Dose: 0.5 mg Documented by: Sodium Chloride () 1,000 mls @ 75 mls/hr IV .[id number] NATALI Last Admin: 12/26/19 05:05 Dose: 75 mls/hr Documented by: Sodium Chloride () 250 mls @ 15 mls/hr IV .[id number] PRN PRN Reason: Saline Flush Sodium Chloride () 250 mls @ 15 mls/hr IV .[id number] PRN PRN Reason: Additional IVPB Infusion Ondansetron HCl (Zofran) 4 mg IV Q8H PRN PRN PRN Reason: NAUSEA/VOMITING Last Admin: 12/26/19 01:07 Dose: 4 mg Documented by: Oxycodone HCl (Oxyir) 5 mg PO Q6H PRN PRN PRN Reason: Pain Score 6-10/10 Last Admin: 12/25/19 16:26 Dose: 5 mg Documented by: Sodium Chloride () 10 - 40 ml IV UD PRN PRN Reason: SALINE FLUSH Last Admin: 12/25/19 14:15 Dose: 10 ml Documented by: Medical Necessity - Tobacco Use Smoking Status: Never smoker Tobacco Use: Non-smoker Assessment/Plan All Active Problems Ruptured tubal of right fallopian tube (Acute) Acute blood loss anemia (Acute) Doing well postoperative day #1 status post laparoscopic bilateral salpin gectomy, appendectomy, ectopic removal, and massive blood loss. We will very slowly advance diet with liquids today given patient has flatus and is reporting being hungry. Likely home tomorrow.
--- NOTE | 2019-12-26 08:56 | PN_ITS ---
Patient Problems: Active and Suspected Problems Ruptured tubal of right fallopian tube (Acute) Acute blood loss anemia (Acute) Subjective: Feels little better than yesterday, pain is better controlled Vitals/I&O's: Vital Signs Temp Pulse Resp BP Pulse Ox 98.5 F 96 17 119/77 95 12/26/19 05:00 12/26/19 08:46 12/26/19 05:00 12/26/19 05:00 12/26/19 05:00 Oxygen Delivery Method Room Air Weight: 123 lb 7.342 oz Body Mass Index (BMI) 21.1 Intake and Output for Last 24 Hours 12/24/19 12/25/19 12/26/19 23:59 23:59 23:59 Intake Total 2087.35 / 2087.35 978.75 / 978.75 Output Total 1325 / 1325 950 / 950 Balance 762.35 / 762.35 28.75 / 28.75 General: Alert, Oriented x3, Cooperative, No apparent distress, - - Pale HEENT: Atraumatic, PERRLA, EOMI, Normocephalic Oral: Dry Mucosa Neck: Supple, No JVD Lungs: Clear to auscultation, Normal air movement, No rhonchi, No wheeze, No rales Cardiovascular: Regular rate, Regular Rhythm, Normal S1, Normal S2, No murmurs Abdomen: Soft, Non Tender, Non-Distended, No Hepato-splenomegaly Extremities: No edema, Capillary Refill Less than 3 Seconds Skin: No rashes, No breakdown, Incision - CDI Neurological: Neuro grossly intact Psych/Mental Status: Normal Affect, Appropriate Laboratory Results 12/25/19 02:38: Diff Path Review Reviewed 12/25/19 13:35: Hgb 9.3 L, Hct 27.1 L 12/25/19 21:23: Hgb 9.3 L, Hct 26.6 L 12/26/19 05:08: POC Glucose 126 H 12/26/19 06:15: WBC 11.9 H, RBC 3.05 L, Hgb 8.9 L, Hct 25.9 L, MCV 84.9, MCH 29.2, MCHC 34.4, RDW Std Deviation 42.5, RDW Coeff of Shazia 13.7, Plt Count 203, MPV 10.3, Immature Gran % (Auto) 0.700, Neut % (Auto) 90.6 H, Lymph % (Auto) 4.5 L, [place] % (Auto) 3.9, Eos % (Auto) 0.0, Baso % (Auto) 0.3, Absolute Neuts (auto) 10.8 H, Absolute Lymphs (auto) 0.54 L, Nucleated RBC % 0, Differential Comment SCANNED 12/26/19 06:15: Sodium 138, Potassium 3.9, Chloride 108 H, Carbon Dioxide 25.0, Anion Gap 5, BUN 8, Creatinine 0.56, Estim Creat Clear Calc 129.15, Est GFR (MDRD) Af Amer 164, Est GFR (MDRD) Non-Af 135, BUN/Creatinine Ratio 14.2, Glucose 130 H, Calcium 8.3 L Current Medications Hydromorphone HCl (Dilaudid Inj) 0.5 - 1 mg IV Q3H PRN PRN PRN Reason: Pain Score 6-1010 Last Admin: 12/26/19 01:06 Dose: 0.5 mg Documented by: Sodium Chloride () 1,000 mls @ 75 mls/hr IV .[id number] NATALI Last Admin: 12/26/19 05:05 Dose: 75 mls/hr Documented by: Sodium Chloride () 250 mls @ 15 mls/hr IV .[id number] PRN PRN Reason: Saline Flush Sodium Chloride () 250 mls @ 15 mls/hr IV .[id number] PRN PRN Reason: Additional IVPB Infusion Ondansetron HCl (Zofran) 4 mg IV Q8H PRN PRN PRN Reason: NAUSEA/VOMITING Last Admin: 12/26/19 01:07 Dose: 4 mg Documented by: Oxycodone HCl (Oxyir) 5 mg PO Q6H PRN PRN PRN Reason: Pain Score 6-10/10 Last Admin: 12/25/19 16:26 Dose: 5 mg Documented by: Sodium Chloride () 10 - 40 ml IV UD PRN PRN Reason: SALINE FLUSH Last Admin: 12/25/19 14:15 Dose: 10 ml Documented by: STROKE Vital Signs/Narrative: Vital Signs Temp Pulse Resp BP Pulse Ox 12/26/19 08:46 96 12/26/19 05:00 98.5 F 93 17 119/77 95 Medical Necessity - Tobacco Use Smoking Status: Never smoker Tobacco Use: Non-smoker Assessment/Plan All Active Problems Ruptured tubal of right fallopian tube (Acute) Acute blood loss anemia (Acute) 1. Ectopic /acute blood loss anemia secondary to ectopic rupture -12/25/2019 bilateral salpingectomy and appendectomy -She had about 2 L of blood loss and was given 2 units of packed red blood cells -Yesterday her hemoglobin was 9.3 and this morning is down to 8.9 -We will continue to monitor and transfuse as necessary -Can start her on iron replacement -Encouraged cautious use of narcotics to prevent ileus and faster recovery -Ambulate DVT: SCDs Code Visit Inpatient E&M: 05787 Subs Hosp L2
[2019-12-26] MEDS: oxyCODONE 5 MG Tablet PO (11:38)
[2019-12-26] MEDS: Ferrous Sulfate 325 MG Tablet PO (11:38)
--- NOTE | 2019-12-26 11:50 | CASEMGMT ---
RN KRISTA Face to Face with patient for initial transition planning/care coordination assessment. RN CM introduced self and role at [facility]. Patient lying in bed, alert and oriented, at bedside. Patient willing to participate in assessment and is able to answer all questions appropriately. Care providers, pharmacy, and demographics verified. Patient wishes to discharge home, denies need for home health at this time. Patient states she has no further needs or concerns at this time. CM to follow for discharge planning needs that may arise. PCP: No PCP, list of PCP provided to patient Specialists: None Preferred Pharmacy: [facility] Insurance: None Prescription Benefit: none Living Will/HPOA: none LNOK: Living Arrangements: Patient lives with in basement apartment in family's home. Patient independent at home. Transportation: self, DME/HHC: Patient denies any DME or HHC. Disposition Plan: Patient to discharge home with family support and follow-up plans in place. Bobbi KC, RN, CM
[2019-12-26] MEDS: proMETHazine 25 MG/ML Syringe 12.5 MG IV (15:29)
[2019-12-26] MEDS: 0.9% Saline Lock 10 ML Syringe IV (15:30)
[2019-12-27] VITALS (7 sets, daily range): BP systolic 103–120; BP diastolic 56–69; PULSE 85–103; RESP 16–18; TEMP 36.7–37.6; O2SAT 98–100
[2019-12-27 05:41] LABS: Absolute Lymphocyte Count 1.35 X10^3/uL (0.83-4.51); Absolute Neutrophil Count 6.5 X10^3/uL (2.0-7.7); Basophil# 0.02 X10^3/uL; Basophil% 0.2 % (0-1); Eosinophil# 0.06 X10^3/uL; Eosinophils% 0.7 % (0-5); Hematocrit 20.6 % (37-47); Lymphocyte # 1.35 X10^3/ul (4.0); Lymphocyte % 15.5 % (19-41); Mean Corpuscular Hgb 29.2 pg (27.0-32.0); Mean Corpuscular Volume 85.8 fL (81-99); Mean Platelet Vol. 10.1 fl (6.2-12.0); Monocyte# 0.71 X10^3/uL; Monocyte% 8.1 % (0-10); NRBC Flagged by Analyzer 0 % (0-5); Neutrophil # 6.52 X10^3/uL (2.7-7.7); Neutrophil % 74.8 % (47-70); Platelet Count 187 K/mm3 (150-450); RBC Distribution Width CV 13.4 % (11.6-14.6); RBC Distribution Width SD 41.5 fl (35.1-43.9); White Blood Count 8.7 K/mm3 (4.4-11.0)
--- NOTE | 2019-12-27 07:57 | PCM.PN.SRG ---
Patient Problems: Active and Suspected Problems Ruptured tubal of right fallopian tube (Acute) Acute blood loss anemia (Acute) Subjective: Patient had emesis after diet yesterday. She ports no further vomiting. - Physical Exam Vitals/I&O's: Vital Signs Temp Pulse Resp BP Pulse Ox 99.4 F H 103 H 16 107/59 L 98 12/27/19 03:30 12/27/19 03:30 12/27/19 03:30 12/27/19 03:30 12/27/19 03:30 Oxygen Delivery Method Room Air Weight: 123 lb 7.342 oz Body Mass Index (BMI) 21.1 Intake and Output for Last 24 Hours 12/25/19 12/26/19 12/27/19 23:59 23:59 23:59 Intake Total 2087.35 / 2087.35 1737.50 / 1797.50 240 / 240 Output Total 1325 / 1325 1750 / 2500 1400 / 1400 Balance 762.35 / 762.35 -12.50 / -702.50 -1160 / -1160 General: Alert, Oriented x3 Cardiovascular: Regular Rhythm, Tachycardic Abdomen: Soft, Tender Laboratory Results 12/27/19 04:55: WBC 8.7, RBC 2.40 L, Hgb 7.0 L, Hct 20.6 L, MCV 85.8, MCH 29.2, MCHC 34.0, RDW Std Deviation 41.5, RDW Coeff of Shazia 13.4, Plt Count 187, MPV 10.1, Immature Gran % (Auto) 0.700, Neut % (Auto) 74.8 H, Lymph % (Auto) 15.5 L, [place] % (Auto) 8.1, Eos % (Auto) 0.7, Baso % (Auto) 0.2, Absolute Neuts (auto) 6.5, Absolute Lymphs (auto) 1.35, Nucleated RBC % 0 Current Medications Ferrous Sulfate (Ferrous Sulfate) 325 mg PO DAILY@1200 NATALI Last Admin: 12/26/19 11:38 Dose: 325 mg Documented by: Hydromorphone HCl (Dilaudid Inj) 0.5 - 1 mg IV Q3H PRN PRN PRN Reason: Pain Score 6-10/10 Last Admin: 12/26/19 01:06 Dose: 0.5 mg Documented by: Sodium Chloride () 250 mls @ 15 mls/hr IV .[id number] PRN PRN Reason: Saline Flush Sodium Chloride () 250 mls @ 15 mls/hr IV .[id number] PRN PRN Reason: Additional IVPB Infusion Sodium Chloride () 1,000 mls @ 75 mls/hr IV .[id number] NATALI Last Admin: 12/26/19 19:59 Dose: 75 mls/hr Documented by: Ondansetron HCl (Zofran) 4 mg IV Q8H PRN PRN PRN Reason: NAUSEA/VOMITING Last Admin: 12/26/19 13:41 Dose: 4 mg Documented by: Oxycodone HCl (Oxyir) 5 mg PO Q6H PRN PRN PRN Reason: Pain Score 6-10/10 Last Admin: 12/26/19 11:38 Dose: 5 mg Documented by: Promethazine HCl (Phenergan) 12.5 mg IV Q6H PRN PRN PRN Reason: NAUSEA/VOMITING Last Admin: 12/26/19 15:29 Dose: 12.5 mg Documented by: Sodium Chloride () 10 - 40 ml IV UD PRN PRN Reason: SALINE FLUSH Last Admin: 12/26/19 15:30 Dose: 20 ml Documented by: Medical Necessity - Tobacco Use Smoking Status: Never smoker Tobacco Use: Non-smoker Assessment/Plan All Active Problems Ruptured tubal of right fallopian tube (Acute) Acute blood loss anemia (Acute) 29-year-old female status post appendectomy and ectopic evacuation 1. The patient is having postoperative ileus. She had vomiting with a diet yesterday. Her hemoglobin did drop by 2 g since yesterday. She is tachycardic. The patient likely needs transfusion and I would recommend a CT scan with IV contrast to see if any cause of bleeding could be identified. I will discuss with Dr. Orozco first. Maximino Hay MD Pager: [facility] [address] [place] [address], [address] [place] [address] Office:
--- NOTE | 2019-12-27 08:31 | CT_ITS ---
STUDY: CTA ABDOMEN/PELVIS WITH CONTRAST REASON FOR EXAM: Female, 29 years old. Decreased hemoglobin, recent ruptured ectopic on the right RADIATION DOSAGE (If Supplied By Facility): CTDIvol = ( 11.91 ) mGy, DLP = ( 712.41 ) mGycm TECHNIQUE: The examination was performed with the intravenous administration of 100CC ISOVUE 370. Post-processing of the angiographic images was performed, with multiplanar reformation and 3D reconstruction. Individualized dose optimization techniques were used for this CT. COMPARISON: No relevant priors. FINDINGS: CTA Abdomen T Pelvis The visualized lung bases are unremarkable. The visualized portions of the heart are within normal limits. Normal liver. Normal gallbladder and extrahepatic biliary system. Normal spleen. Normal pancreas. Normal bilateral adrenal glands. Normal right kidney. Normal left kidney. Normal visualized stomach. There are mildly dilated, fluid-filled loops of small bowel, this may be due to ileus. Normal colon. The appendix is visualized and appears normal. Normal abdominal aorta. Normal inferior vena cava. Normal retroperitoneum. There is mild mesenteric edema and fluid in the right and left paracolic gutters. There is no evidence of extravasation to suggest active hemorrhage. There is no abdominal or pelvic hematoma. There is small amount of pneumoperitoneum. Normal urinary bladder. There is a few foci of air in the anterior pelvic wall , likely related to surgery. Normal osseous structures. CT/CTA Abdomen W/WO Contrast IMPRESSION: There are mildly dilated fluid-filled loops of small bowel, this may be due to ileus in the setting of recent surgery. There is no evidence of active hemorrhage. No hematoma. There is mild mesenteric edema and postsurgical changes noted of the anterior pelvic wall. Small amount of pneumoperitoneum. Electronically Signed: Casey Granda, at 11:32 EST Tel , Service support ,
--- NOTE | 2019-12-27 08:41 | PCM.PN.OB ---
Patient Problems: Active and Suspected Problems Ruptured tubal of right fallopian tube (Acute) Acute blood loss anemia (Acute) Subjective: Reports abdomen feels swollen. Denies headache, chest pain, shortness of breath. She feels tired and sore. Passing flatus. No further vomiting since yesterday afternoon. Tolerates CLD. Objective: AVSS - Physical Exam Vitals/I&O's: Vital Signs Temp Pulse Resp BP Pulse Ox 99.4 F H 103 H 16 107/59 L 98 12/27/19 03:30 12/27/19 03:30 12/27/19 03:30 12/27/19 03:30 12/27/19 03:30 Oxygen Delivery Method Room Air Weight: 56 kg Body Mass Index (BMI) 21.1 Intake and Output for Last 24 Hours 12/25/19 12/26/19 12/27/19 23:59 23:59 23:59 Intake Total 2087.35 / 2087.35 1737.50 / 1797.50 240 / 240 Output Total 1325 / 1325 1750 / 2500 1400 / 1400 Balance 762.35 / 762.35 -12.50 / -702.50 -1160 / -1160 General: Alert, Oriented x3, Cooperative, No apparent distress HEENT: Atraumatic, Normocephalic Lungs: Clear to auscultation, Normal air movement Cardiovascular: Regular Rhythm, Normal S1, Normal S2, Tachycardic Abdomen: Bowel Sounds Present, Soft, Non-Distended, - - tender Extremities: No edema, No Calf Tenderness Neurological: Neuro grossly intact Psych/Mental Status: Normal Affect, Appropriate, Alert and oriented to time, place, person, mood and affect Laboratory Results 12/27/19 04:55: WBC 8.7, RBC 2.40 L, Hgb 7.0 L, Hct 20.6 L, MCV 85.8, MCH 29.2, MCHC 34.0, RDW Std Deviation 41.5, RDW Coeff of Shazia 13.4, Plt Count 187, MPV 10.1, Immature Gran % (Auto) 0.700, Neut % (Auto) 74.8 H, Lymph % (Auto) 15.5 L, [place] % (Auto) 8.1, Eos % (Auto) 0.7, Baso % (Auto) 0.2, Absolute Neuts (auto) 6.5, Absolute Lymphs (auto) 1.35, Nucleated RBC % 0 Current Medications Ferrous Sulfate (Ferrous Sulfate) 325 mg PO DAILY@1200 NATALI Last Admin: 12/26/19 11:38 Dose: 325 mg Documented by: Hydromorphone HCl (Dilaudid Inj) 0.5 - 1 mg IV Q3H PRN PRN PRN Reason: Pain Score 6-10/10 Last Admin: 12/26/19 01:06 Dose: 0.5 mg Documented by: Sodium Chloride () 250 mls @ 15 mls/hr IV .[id number] PRN PRN Reason: Saline Flush Sodium Chloride () 250 mls @ 15 mls/hr IV .[id number] PRN PRN Reason: Additional IVPB Infusion Sodium Chloride () 1,000 mls @ 75 mls/hr IV .[id number] NATALI Last Admin: 12/26/19 19:59 Dose: 75 mls/hr Documented by: Ondansetron HCl (Zofran) 4 mg IV Q8H PRN PRN PRN Reason: NAUSEA/VOMITING Last Admin: 12/26/19 13:41 Dose: 4 mg Documented by: Oxycodone HCl (Oxyir) 5 mg PO Q6H PRN PRN PRN Reason: Pain Score 6-10/10 Last Admin: 12/26/19 11:38 Dose: 5 mg Documented by: Promethazine HCl (Phenergan) 12.5 mg IV Q6H PRN PRN PRN Reason: NAUSEA/VOMITING Last Admin: 12/26/19 15:29 Dose: 12.5 mg Documented by: Sodium Chloride () 10 - 40 ml IV UD PRN PRN Reason: SALINE FLUSH Last Admin: 12/26/19 15:30 Dose: 20 ml Documented by: Medical Necessity - Tobacco Use Smoking Status: Never smoker Tobacco Use: Non-smoker Assessment/Plan All Active Problems Ruptured tubal of right fallopian tube (Acute) Acute blood loss anemia (Acute) 29yo POD#3 s/p laparoscopic treatment of ruptured ectopic with acute blood loss anemia s/p 2u prbc with recurring signs of anemia. -Gen Surgery consultation appreciated. -Non acute abdomen, r/o intra-abdominal bleed. Will order CT with IV contrast
--- NOTE | 2019-12-27 11:11 | PN_ITS ---
Patient Problems: Active and Suspected Problems Ruptured tubal of right fallopian tube (Acute) Acute blood loss anemia (Acute) Subjective: Seems a little better this morning states that she is passing gas finally, no BM. Belly pain is little bit better today. Vitals/I&O's: Vital Signs Temp Pulse Resp BP Pulse Ox 98.7 F 98 18 108/66 99 12/27/19 09:00 12/27/19 09:00 12/27/19 09:00 12/27/19 09:00 12/27/19 09:00 Oxygen Delivery Method Room Air Weight: 123 lb 7.342 oz Body Mass Index (BMI) 21.1 Intake and Output for Last 24 Hours 12/25/19 12/26/19 12/27/19 23:59 23:59 23:59 Intake Total 2087.35 / 2087.35 1737.50 / 1797.50 1220 / 1220 Output Total 1325 / 1325 1750 / 2500 1400 / 1400 Balance 762.35 / 762.35 -12.50 / -702.50 -180 / -180 General: Alert, Oriented x3, Cooperative, No apparent distress, - - Pale HEENT: Atraumatic, PERRLA, EOMI, Normocephalic Oral: Dry Mucosa Neck: Supple, No JVD Lungs: Clear to auscultation, Normal air movement, No rhonchi, No wheeze, No rales Cardiovascular: Regular rate, Regular Rhythm, Normal S1, Normal S2, No murmurs Abdomen: Soft, Non Tender, Non-Distended, No Hepato-splenomegaly Extremities: No edema, Capillary Refill Less than 3 Seconds Skin: No rashes, No breakdown, Incision - CDI Neurological: Neuro grossly intact Psych/Mental Status: Normal Affect, Appropriate Laboratory Results 12/24/19 20:40: Crossmatch See Detail 12/27/19 04:55: WBC 8.7, RBC 2.40 L, Hgb 7.0 L, Hct 20.6 L, MCV 85.8, MCH 29.2, MCHC 34.0, RDW Std Deviation 41.5, RDW Coeff of Shazia 13.4, Plt Count 187, MPV 10.1, Immature Gran % (Auto) 0.700, Neut % (Auto) 74.8 H, Lymph % (Auto) 15.5 L, [place] % (Auto) 8.1, Eos % (Auto) 0.7, Baso % (Auto) 0.2, Absolute Neuts (auto) 6.5, Absolute Lymphs (auto) 1.35, Nucleated RBC % 0 Current Medications Ferrous Sulfate (Ferrous Sulfate) 325 mg PO DAILY@1200 NATALI Last Admin: 12/26/19 11:38 Dose: 325 mg Documented by: Hydromorphone HCl (Dilaudid Inj) 0.5 - 1 mg IV Q3H PRN PRN PRN Reason: Pain Score 6-10/10 Last Admin: 12/26/19 01:06 Dose: 0.5 mg Documented by: Sodium Chloride () 250 mls @ 15 mls/hr IV .[id number] PRN PRN Reason: Saline Flush Sodium Chloride () 250 mls @ 15 mls/hr IV .[id number] PRN PRN Reason: Additional IVPB Infusion Sodium Chloride () 1,000 mls @ 75 mls/hr IV .[id number] NATALI Last Admin: 12/27/19 10:13 Dose: Not Given Documented by: Ondansetron HCl (Zofran) 4 mg IV Q8H PRN PRN PRN Reason: NAUSEA/VOMITING Last Admin: 12/26/19 13:41 Dose: 4 mg Documented by: Oxycodone HCl (Oxyir) 5 mg PO Q6H PRN PRN PRN Reason: Pain Score 6-10/10 Last Admin: 12/26/19 11:38 Dose: 5 mg Documented by: Promethazine HCl (Phenergan) 12.5 mg IV Q6H PRN PRN PRN Reason: NAUSEA/VOMITING Last Admin: 12/26/19 15:29 Dose: 12.5 mg Documented by: Sodium Chloride () 10 - 40 ml IV UD PRN PRN Reason: SALINE FLUSH Last Admin: 12/26/19 15:30 Dose: 20 ml Documented by: STROKE Vital Signs/Narrative: Vital Signs Temp Pulse Resp BP Pulse Ox 12/27/19 09:00 98.7 F 98 18 108/66 99 Medical Necessity - Tobacco Use Smoking Status: Never smoker Tobacco Use: Non-smoker Assessment/Plan All Active Problems Ruptured tubal of right fallopian tube (Acute) Acute blood loss anemia (Acute) 1. Ectopic /acute blood loss anemia secondary to ectopic rupture -12/25/2019 bilateral salpingectomy and appendectomy -She had about 2 L of blood loss and was given 2 units of packed red blood cells -Yesterday her hemoglobin was 8.9 and now down to 7.0, transfuse 2 U PRBC, CT pending -We will continue to monitor -Can start her on iron replacement -Encouraged cautious use of narcotics to prevent ileus and faster recovery -Ambulate, no diet today DVT: SCDs Code Visit Inpatient E&M: 22736 Subs Hosp L2
[2019-12-27] MEDS: 0.9% Normal Saline 1,000 ML 75 ML IV (14:47)
[2019-12-27] MEDS: Ondansetron 4 MG/2 ML Vial IV (14:50)
[2019-12-27 16:30] LABS: Hematocrit 25.4 % (37-47); Hemoglobin 8.7 g/dL (12.0-15.0)
[2019-12-28] MEDS: 0.9% Saline Lock 10 ML Syringe IV (00:24)
[2019-12-28] MEDS: Ondansetron 4 MG/2 ML Vial IV (00:24)
[2019-12-28 02:15] VITALS: BP 99/61; PULSE 98; RESP 16; TEMP 37.1; O2SAT 99
--- NOTE | 2019-12-28 02:39 | EKG12_ITS ---
Test Reason : Blood Pressure : / mmHG Vent. Rate : 101 BPM Atrial Rate : 101 BPM P-R Int : 150 ms QRS Dur : 084 ms QT Int : 340 ms P-R-T Axes : 065 039 036 degrees QTc Int : 440 ms Sinus tachycardia Otherwise normal ECG No previous ECGs available Confirmed by EVELYN BUSH, DIANA ([id number]), videotape editor JL NEWSOME ([id number]) on 01/01/2020 11:06:25 AM Referred By: Confirmed By:RUBINA RIVAS MD
[2019-12-28 02:46] LABS: Bedside Glucose 74 mg/dL (70-110)
[2019-12-28 03:08] LABS: Absolute Lymphocyte Count 1.15 X10^3/uL (0.83-4.51); Absolute Neutrophil Count 4.5 X10^3/uL (2.0-7.7); Basophil# 0.03 X10^3/uL; Basophil% 0.5 % (0-1); Eosinophil# 0.07 X10^3/uL; Eosinophils% 1.1 % (0-5); Lymphocyte # 1.15 X10^3/ul (4.0); Lymphocyte % 18.4 % (19-41); Mean Corp Hgb Conc 33.3 g/dL (32-36); Mean Platelet Vol. 10.1 fl (6.2-12.0); Monocyte# 0.52 X10^3/uL; Monocyte% 8.3 % (0-10); NRBC Flagged by Analyzer 0 % (0-5); Neutrophil # 4.45 X10^3/uL (2.7-7.7); Neutrophil % 71.1 % (47-70); Platelet Count 184 K/mm3 (150-450); RBC Distribution Width CV 13.4 % (11.6-14.6); RBC Distribution Width SD 41.8 fl (35.1-43.9); Red Blood Count 2.76 M/mm3 (4.2-5.4); White Blood Count 6.3 K/mm3 (4.4-11.0)
[2019-12-28] MEDS: Dext 5%-0.45% NS 1,000 ML 75 ML IV (03:24)
[2019-12-28 03:28] LABS: Anion Gap 9 (5-15); BUN 13 mg/dL (7-18); BUN/Creat Ratio 29.3 RATIO (10-20); Calcium,Total 8.1 mg/dL (8.5-10.1); Chloride 111 mmol/L (98-107); Creatinine, Serum 0.44 mg/dL (0.55-1.02); EST Glomerular Filtration Rate 179 mL/min (>60); Est Glom Filt Rate - Afr Amer 216 mL/min (>60); Estimated Creatinine Clearance 164.38 ml/min; Glucose 73 mg/dL (74-106); Potassium 3.4 mmol/L (3.5-5.1); Sodium Level 141 mmol/L (136-145)
[2019-12-28 03:45] VITALS: BP 113/76; PULSE 94; RESP 16; TEMP 37.1; O2SAT 100
[2019-12-28] MEDS: Potassium Chloride 40 MEQ in Dext 5%-0.45% NS 1,000 ML 75 MEQ IV ×2 (04:31→17:05)
--- NOTE | 2019-12-28 08:30 | PN_ITS ---
Patient Problems: Active and Suspected Problems Ruptured tubal of right fallopian tube (Acute) Acute blood loss anemia (Acute) Reason for Visit: Follow-up on anemia/ectopic Subjective: Patient was seen and examined. She complains of diarrhea overnight. Her BS was 73. Abdominal pain is still present but better. Not taken narcotic meds >24 hours. She is feeling down reflecting on recent events. is at the bedside. Still NPO Objective: Physical exam: Vitals/I&O's: Vital Signs Temp Pulse Resp BP Pulse Ox 98.7 F 94 16 113/76 100 12/28/19 03:45 12/28/19 03:45 12/28/19 03:45 12/28/19 03:45 12/28/19 03:45 Oxygen Delivery Method Room Air Weight: 56 kg Body Mass Index (BMI) 21.1 Intake and Output for Last 24 Hours 12/26/19 12/27/19 12/28/19 23:59 23:59 23:59 Intake Total 1737.50 / 1797.50 1620 / 1620 1035.00 / 1035.00 Output Total 1750 / 2500 3000 / 3000 Balance -12.50 / -702.50 -1380 / -1380 1035.00 / 1035.00 General: Alert, Oriented x3, Cooperative, No apparent distress, - - pale, well hydrated HEENT: Atraumatic, PERRLA, EOMI, Normocephalic Oral: Moist Mucosa Neck: Supple Lungs: Clear to auscultation, Normal air movement Cardiovascular: Regular rate, Regular Rhythm, Normal S1, Normal S2, No murmurs Abdomen: Bowel Sounds Present, Soft, Non-Distended, No Hepato-splenomegaly, Tender - generalised, no guarding, laparoscopic dressings intact Extremities: No edema Skin: No rashes, No breakdown Musculoskeletal: No Tenderness to Palpation of Joints or Extremities Lymphatic: No Cervical, Supraclavicular, or Inguinal Adenopathy Neurological: Cranial nerves II-XII grossly intact, Neuro grossly intact Psych/Mental Status: Normal Affect, Appropriate Laboratory Results 12/24/19 20:40: Crossmatch See Detail 12/27/19 16:22: Hgb 8.7 L, Hct 25.4 L 12/28/19 02:40: POC Glucose 74 12/28/19 02:57: Sodium 141, Potassium 3.4 L, Chloride 111 H, Carbon Dioxide 21.0, Anion Gap 9, BUN 13, Creatinine 0.44 L, Estim Creat Clear Calc 164.38, Est GFR (MDRD) Af Amer 216, Est GFR (MDRD) Non-Af 179, BUN/Creatinine Ratio 29.3 H, Glucose 73 L, Calcium 8.1 L 12/28/19 02:57: Troponin I < 0.015 12/28/19 02:57: WBC 6.3, RBC 2.76 L, Hgb 8.0 L, Hct 24.0 L, MCV 87.0, MCH 29.0, MCHC 33.3, RDW Std Deviation 41.8, RDW Coeff of Shazia 13.4, Plt Count 184, MPV 10.1, Immature Gran % (Auto) 0.600, Neut % (Auto) 71.1 H, Lymph % (Auto) 18.4 L, [place] % (Auto) 8.3, Eos % (Auto) 1.1, Baso % (Auto) 0.5, Absolute Neuts (auto) 4.5, Absolute Lymphs (auto) 1.15, Nucleated RBC % 0 12/28/19 06:00: Troponin I < 0.015 12/28/19 08:24: WBC Pending, RBC Pending, Hgb Pending, Hct Pending, MCV Pending, MCH Pending, MCHC Pending, RDW Std Deviation Pending, RDW Coeff of Shazia Pending, Plt Count Pending, Neut % (Auto) Pending, Absolute Neuts (auto) Pending 12/28/19 08:24: Sodium Pending, Potassium Pending, Chloride Pending, Carbon Dioxide Pending, Anion Gap Pending, BUN Pending, Creatinine Pending, Est GFR (MDRD) Af Amer Pending, Est GFR (MDRD) Non-Af Pending, BUN/Creatinine Ratio Pending, Glucose Pending, Calcium Pending 12/28/19 08:24: Troponin I Pending Current Medications Acetaminophen (Tylenol) 650 mg PO Q6H PRN PRN PRN Reason: Pain 1-10/Temp > 100.7F Ferrous Sulfate (Ferrous Sulfate) 325 mg PO DAILY@1200 NATALI Last Admin: 12/27/19 11:24 Dose: Not Given Documented by: Hydromorphone HCl (Dilaudid Inj) 0.5 - 1 mg IV Q3H PRN PRN PRN Reason: Pain Score 6-10/10 Last Admin: 12/26/19 01:06 Dose: 0.5 mg Documented by: Sodium Chloride () 250 mls @ 15 mls/hr IV .[id number] PRN PRN Reason: Saline Flush Sodium Chloride () 250 mls @ 15 mls/hr IV .[id number] PRN PRN Reason: Additional IVPB Infusion Potassium Chloride 40 meq/ (Dextrose/Sodium Chloride) 1,020 mls @ 75 mls/hr IV .[id number] NATALI Last Admin: 12/28/19 04:31 Dose: 75 mls/hr Documented by: Ondansetron HCl (Zofran) 4 mg IV Q8H PRN PRN PRN Reason: NAUSEA/VOMITING Last Admin: 12/28/19 00:24 Dose: 4 mg Documented by: Oxycodone HCl (Oxyir) 5 mg PO Q6H PRN PRN PRN Reason: Pain Score 6-10/10 Last Admin: 12/26/19 11:38 Dose: 5 mg Documented by: Promethazine HCl (Phenergan) 12.5 mg IV Q6H PRN PRN PRN Reason: NAUSEA/VOMITING Last Admin: 12/26/19 15:29 Dose: 12.5 mg Documented by: Sodium Chloride () 10 - 40 ml IV UD PRN PRN Reason: SALINE FLUSH Last Admin: 12/28/19 00:24 Dose: 10 ml Documented by: Medical Necessity - Tobacco Use Smoking Status: Never smoker Tobacco Use: Non-smoker Assessment/Plan All Active Problems Ruptured tubal of right fallopian tube (Acute) Acute blood loss anemia (Acute) 29 y/o female who was admitted on 12/25/19 with abdominal pain and found to have a ruptured right ectopic . 1. POD #3 status post diagnostic laparoscopy, removal of ectopic , bilateral salpingectomy, lysis of adhesions, appendectomy Still with postop ileus, much improved, been having diarrhea, pain is controlled on prn oxycodone Kept n.p.o. by general surgery, on IV fluids Will continue same, follow-up on general surgery recommendations 2. Acute blood loss anemia secondary to #1, status post [address] of the abdomen and pelvis was negative for ongoing bleed. Hb is 7.7, likely has a component of dilution from IV fluids Will repeat blood work, will transfuse when is less than 7 Will check HH at noon, continue on oral iron 3. Hypokalemia, likely secondary to diarrhea, Will replace, also check magnesium 4. DVT PPx - SCDs 5. Disposition: Dc home, likely in the next 24-48hrs if she continues to improve Code Visit Inpatient E&M: 60580 Subs Hosp L2
[2019-12-28 08:33] LABS: Absolute Lymphocyte Count 1.23 X10^3/uL (0.83-4.51); Absolute Neutrophil Count 3.8 X10^3/uL (2.0-7.7); Basophil# 0.01 X10^3/uL; Basophil% 0.2 % (0-1); Eosinophil# 0.12 X10^3/uL; Eosinophils% 2.1 % (0-5); Hematocrit 22.8 % (37-47); Hemoglobin 7.7 g/dL (12.0-15.0); Lymphocyte # 1.23 X10^3/ul (4.0); Lymphocyte % 21.9 % (19-41); Mean Corp Hgb Conc 33.8 g/dL (32-36); Mean Corpuscular Hgb 29.2 pg (27.0-32.0); Mean Corpuscular Volume 86.4 fL (81-99); Mean Platelet Vol. 9.6 fl (6.2-12.0); Monocyte# 0.39 X10^3/uL; NRBC Flagged by Analyzer 0 % (0-5); Neutrophil # 3.82 X10^3/uL (2.7-7.7); Neutrophil % 68.1 % (47-70); Platelet Count 174 K/mm3 (150-450); RBC Distribution Width CV 13.4 % (11.6-14.6); RBC Distribution Width SD 41.8 fl (35.1-43.9); Red Blood Count 2.64 M/mm3 (4.2-5.4); White Blood Count 5.6 K/mm3 (4.4-11.0)
[2019-12-28 08:56] LABS: Anion Gap 4 (5-15); BUN 11 mg/dL (7-18); BUN/Creat Ratio 22.7 RATIO (10-20); Calcium,Total 8.1 mg/dL (8.5-10.1); Chloride 113 mmol/L (98-107); Creatinine, Serum 0.48 mg/dL (0.55-1.02); EST Glomerular Filtration Rate 162 mL/min (>60); Est Glom Filt Rate - Afr Amer 196 mL/min (>60); Estimated Creatinine Clearance 150.68 ml/min; Glucose 87 mg/dL (74-106); Potassium 3.6 mmol/L (3.5-5.1); Sodium Level 141 mmol/L (136-145)
[2019-12-28 10:41] VITALS: BP 113/69; PULSE 92; RESP 16; TEMP 36.8; O2SAT 98
[2019-12-28] MEDS: Ferrous Sulfate 325 MG Tablet PO (12:14)
[2019-12-28 14:00] LABS: Hematocrit 23.7 % (37-47); Hemoglobin 8.2 g/dL (12.0-15.0)
[2019-12-28 14:16] LABS: International Normalized Ratio 1.4; Prothrombin Time (Protime)PT. 16.8 SECONDS (11.7-14.9)
[2019-12-28 14:17] LABS: Partial Thromboplast Time 28.1 Seconds (24.1-36.2)
--- NOTE | 2019-12-28 15:59 | CHAPLAIN ---
Type of Pastoral Visit _x__ Initial Visit ___ Follow-up Visit ___ On-call Visit ___ General Patient Visit ___ Spiritual Assessment ___ Family Conference ___ Bereavement ___ Rapid Response ___ Code Blue ___ Other (describe below) Pastoral Care Referral From _x__ Patient _x__ Family ___ Nurse ___ Physician ___ Sweeper Brush Maker Machine ___ Multifocal Button Grinder ___ Other (describe below) Sacrament/Intervention _x__ Active listening ___ Anointing ___ Holiness ___ Bereavement ___ Communion _x__ Rena exploration ___ _x__ Life review _x__ Prayer ___ Reconciliation ___ Sacrament of Sick _x__ Supportive presence ___ Wedding ___ Other (describe below) Pastoral Comments
[2019-12-28 16:41] VITALS: BP 111/69; PULSE 80; RESP 16; TEMP 36.8; O2SAT 98
--- NOTE | 2019-12-28 17:44 | PN.OBGYN_ITS ---
Patient Problems: Active and Suspected Problems Ruptured tubal of right fallopian tube (Acute) Acute blood loss anemia (Acute) Subjective: No issues during the day. She is hungry. Tolerates clear liquids. Passing flatus. No nausea. Pain is minimal. Continue ambulating without lightheadedness. Objective: AVSS - Physical Exam Vitals/I&O's: Vital Signs Temp Pulse Resp BP Pulse Ox 98.3 F 92 16 113/69 98 12/28/19 10:41 12/28/19 10:41 12/28/19 10:41 12/28/19 10:41 12/28/19 10:41 Oxygen Delivery Method Room Air Weight: 56 kg Body Mass Index (BMI) 21.1 Intake and Output for Last 24 Hours 12/26/19 12/27/19 12/28/19 23:59 23:59 23:59 Intake Total 1737.50 / 1797.50 1620 / 1620 Output Total 1750 / 2500 3000 / 3000 Balance -12.50 / -702.50 -1380 / -1380 General: Alert, Oriented x3, Cooperative, No apparent distress HEENT: Atraumatic, Normocephalic Lungs: Normal air movement Cardiovascular: Regular Rhythm Abdomen: Soft, Non Tender, Non-Distended Extremities: No edema, No Calf Tenderness Neurological: Neuro grossly intact Psych/Mental Status: Normal Affect, Appropriate, Alert and oriented to time, place, person, mood and affect Laboratory Results 12/24/19 20:40: Crossmatch See Detail 12/28/19 02:40: POC Glucose 74 12/28/19 02:57: Sodium 141, Potassium 3.4 L, Chloride 111 H, Carbon Dioxide 21.0, Anion Gap 9, BUN 13, Creatinine 0.44 L, Estim Creat Clear Calc 164.38, Est GFR (MDRD) Af Amer 216, Est GFR (MDRD) Non-Af 179, BUN/Creatinine Ratio 29.3 H, Glucose 73 L, Calcium 8.1 L 12/28/19 02:57: Troponin I < 0.015 12/28/19 02:57: WBC 6.3, RBC 2.76 L, Hgb 8.0 L, Hct 24.0 L, MCV 87.0, MCH 29.0, MCHC 33.3, RDW Std Deviation 41.8, RDW Coeff of Shazia 13.4, Plt Count 184, MPV 10.1, Immature Gran % (Auto) 0.600, Neut % (Auto) 71.1 H, Lymph % (Auto) 18.4 L, [place] % (Auto) 8.3, Eos % (Auto) 1.1, Baso % (Auto) 0.5, Absolute Neuts (auto) 4.5, Absolute Lymphs (auto) 1.15, Nucleated RBC % 0 12/28/19 06:00: Troponin I < 0.015 12/28/19 08:24: WBC 5.6, RBC 2.64 L, Hgb 7.7 L, Hct 22.8 L, MCV 86.4, MCH 29.2, MCHC 33.8, RDW Std Deviation 41.8, RDW Coeff of Shazia 13.4, Plt Count 174, MPV 9.6, Immature Gran % (Auto) 0.700, Neut % (Auto) 68.1, Lymph % (Auto) 21.9, [place] % (Auto) 7.0, Eos % (Auto) 2.1, Baso % (Auto) 0.2, Absolute Neuts (auto) 3.8, Absolute Lymphs (auto) 1.23, Nucleated RBC % 0 12/28/19 08:24: Sodium 141, Potassium 3.6, Chloride 113 H, Carbon Dioxide 24.0, Anion Gap 4 L, BUN 11, Creatinine 0.48 L, Estim Creat Clear Calc 150.68, Est GFR (MDRD) Af Amer 196, Est GFR (MDRD) Non-Af 162, BUN/Creatinine Ratio 22.7 H, Glucose 87, Calcium 8.1 L 12/28/19 08:24: Troponin I < 0.015 12/28/19 08:24: Magnesium 2.0 12/28/19 13:55: Hgb 8.2 L, Hct 23.7 L 12/28/19 13:55: PT 16.8 H, INR 1.4, APTT 28.1 Current Medications Acetaminophen (Tylenol) 650 mg PO Q6H PRN PRN PRN Reason: Pain 1-10/Temp > 100.7F Ferrous Sulfate (Ferrous Sulfate) 325 mg PO DAILY@1200 NATALI Last Admin: 12/28/19 12:14 Dose: 325 mg Documented by: Hydromorphone HCl (Dilaudid Inj) 0.5 - 1 mg IV Q3H PRN PRN PRN Reason: Pain Score 6-10/10 Last Admin: 12/26/19 01:06 Dose: 0.5 mg Documented by: Sodium Chloride () 250 mls @ 15 mls/hr IV .[id number] PRN PRN Reason: Saline Flush Sodium Chloride () 250 mls @ 15 mls/hr IV .[id number] PRN PRN Reason: Additional IVPB Infusion Potassium Chloride 40 meq/ (Dextrose/Sodium Chloride) 1,020 mls @ 75 mls/hr IV .[id number] NATALI Last Admin: 12/28/19 17:05 Dose: 75 mls/hr Documented by: Ondansetron HCl (Zofran) 4 mg IV Q8H PRN PRN PRN Reason: NAUSEA/VOMITING Last Admin: 12/28/19 00:24 Dose: 4 mg Documented by: Oxycodone HCl (Oxyir) 5 mg PO Q6H PRN PRN PRN Reason: Pain Score 6-10/10 Last Admin: 12/26/19 11:38 Dose: 5 mg Documented by: Promethazine HCl (Phenergan) 12.5 mg IV Q6H PRN PRN PRN Reason: NAUSEA/VOMITING Last Admin: 12/26/19 15:29 Dose: 12.5 mg Documented by: Sodium Chloride () 10 - 40 ml IV UD PRN PRN Reason: SALINE FLUSH Last Admin: 12/28/19 00:24 Dose: 10 ml Documented by: Medical Necessity - Tobacco Use Smoking Status: Never smoker Tobacco Use: Non-smoker Assessment/Plan All Active Problems Ruptured tubal of right fallopian tube (Acute) Acute blood loss anemia (Acute) 29yo POD#4 s/p laparoscopic treatment of ruptured ectopic , appendectomy with acute blood loss anemia s/p blood transfusion with post-op ileus. -Continue CLD, gum chewing -Blood count stable at this time. PT elevated, consider outpatient Heme consultation. -Routine postop care
[2019-12-28 22:41] VITALS: BP 112/69; PULSE 74; RESP 16; TEMP 36.8; O2SAT 100
[2019-12-29 04:41] VITALS: BP 112/67; PULSE 91; RESP 16; TEMP 36.9; O2SAT 98
[2019-12-29] MEDS: Potassium Chloride 40 MEQ in Dext 5%-0.45% NS 1,000 ML 75 MEQ IV (05:15)
[2019-12-29 06:25] LABS: Absolute Lymphocyte Count 1.15 X10^3/uL (0.83-4.51); Absolute Neutrophil Count 3.3 X10^3/uL (2.0-7.7); Basophil# 0.02 X10^3/uL; Basophil% 0.4 % (0-1); Eosinophil# 0.17 X10^3/uL; Eosinophils% 3.5 % (0-5); Hematocrit 27.3 % (37-47); Hemoglobin 9.1 g/dL (12.0-15.0); Lymphocyte # 1.15 X10^3/ul (4.0); Lymphocyte % 23.4 % (19-41); Mean Corp Hgb Conc 33.3 g/dL (32-36); Mean Corpuscular Hgb 28.7 pg (27.0-32.0); Mean Corpuscular Volume 86.1 fL (81-99); Mean Platelet Vol. 10.1 fl (6.2-12.0); Monocyte# 0.25 X10^3/uL; Monocyte% 5.1 % (0-10); NRBC Flagged by Analyzer 0 % (0-5); Neutrophil # 3.27 X10^3/uL (2.7-7.7); Neutrophil % 66.6 % (47-70); Platelet Count 277 K/mm3 (150-450); RBC Distribution Width CV 13.2 % (11.6-14.6); RBC Distribution Width SD 40.4 fl (35.1-43.9); Red Blood Count 3.17 M/mm3 (4.2-5.4); White Blood Count 4.9 K/mm3 (4.4-11.0)
[2019-12-29 06:52] LABS: AST(SGOT) 11 U/L (15-37); Alanine Aminotransfer ALT/SGPT 15 U/L (13-56); Albumin, Serum 3.3 g/dL (3.2-5.0); Alkaline Phosphatase 42 U/L (45-117); Anion Gap 4 (5-15); BUN 4 mg/dL (7-18); Calcium,Total 8.8 mg/dL (8.5-10.1); Chloride 109 mmol/L (98-107); Creatinine, Serum 0.57 mg/dL (0.55-1.02); EST Glomerular Filtration Rate 133 mL/min (>60); Est Glom Filt Rate - Afr Amer 161 mL/min (>60); Estimated Creatinine Clearance 126.89 ml/min; Globulin 3.3 g/dL (2.2-4.2); Glucose 116 mg/dL (74-106); Potassium 3.6 mmol/L (3.5-5.1); Protein, Total 6.6 g/dL (6.4-8.2); Sodium Level 140 mmol/L (136-145)
--- NOTE | 2019-12-29 07:53 | PCM.PN.SRG ---
Patient Problems: Active and Suspected Problems Ruptured tubal of right fallopian tube (Acute) Acute blood loss anemia (Acute) Subjective: Patient is not complaining of much abdominal pain. She says she is passing flatus and is tolerating clear liquid diet. She did not have any nausea or vomiting. - Physical Exam Vitals/I&O's: Vital Signs Temp Pulse Resp BP Pulse Ox 98.5 F 91 16 112/67 98 12/29/19 04:41 12/29/19 04:41 12/29/19 04:41 12/29/19 04:41 12/29/19 04:41 Oxygen Delivery Method Room Air Weight: 121 lb 11.123 oz Body Mass Index (BMI) 21.1 Intake and Output for Last 24 Hours 12/27/19 12/28/19 12/29/19 23:59 23:59 23:59 Intake Total 1620 / 1620 1977.50 / 2277.50 1712.5 / 1712.5 Output Total 3000 / 3000 Balance -1380 / -1380 1976.50 / 2277.50 1712.5 / 1712.5 General: Alert, Oriented x3 Lungs: Normal air movement Abdomen: Soft, Non-Distended, Tender Laboratory Results 12/24/19 20:40: Crossmatch See Detail 12/28/19 08:24: WBC 5.6, RBC 2.64 L, Hgb 7.7 L, Hct 22.8 L, MCV 86.4, MCH 29.2, MCHC 33.8, RDW Std Deviation 41.8, RDW Coeff of Shazia 13.4, Plt Count 174, MPV 9.6, Immature Gran % (Auto) 0.700, Neut % (Auto) 68.1, Lymph % (Auto) 21.9, [place] % (Auto) 7.0, Eos % (Auto) 2.1, Baso % (Auto) 0.2, Absolute Neuts (auto) 3.8, Absolute Lymphs (auto) 1.23, Nucleated RBC % 0 12/28/19 08:24: Sodium 141, Potassium 3.6, Chloride 113 H, Carbon Dioxide 24.0, Anion Gap 4 L, BUN 11, Creatinine 0.48 L, Estim Creat Clear Calc 150.68, Est GFR (MDRD) Af Amer 196, Est GFR (MDRD) Non-Af 162, BUN/Creatinine Ratio 22.7 H, Glucose 87, Calcium 8.1 L 12/28/19 08:24: Troponin I < 0.015 12/28/19 08:24: Magnesium 2.0 12/28/19 13:55: Hgb 8.2 L, Hct 23.7 L 12/28/19 13:55: PT 16.8 H, INR 1.4, APTT 28.1 12/29/19 05:30: WBC 4.9, RBC 3.17 L, Hgb 9.1 L, Hct 27.3 L, MCV 86.1, MCH 28.7, MCHC 33.3, RDW Std Deviation 40.4, RDW Coeff of Shazia 13.2, Plt Count 277, MPV 10.1, Immature Gran % (Auto) 1.000 H, Neut % (Auto) 66.6, Lymph % (Auto) 23.4, [place] % (Auto) 5.1, Eos % (Auto) 3.5, Baso % (Auto) 0.4, Absolute Neuts (auto) 3.3, Absolute Lymphs (auto) 1.15, Nucleated RBC % 0 12/29/19 05:30: Sodium 140, Potassium 3.6, Chloride 109 H, Carbon Dioxide 27.0, Anion Gap 4 L, BUN 4 L, Creatinine 0.57, Estim Creat Clear Calc 126.89, Est GFR (MDRD) Af Amer 161, Est GFR (MDRD) Non-Af 133, BUN/Creatinine Ratio 7.0 L, Glucose 116 H, Calcium 8.8, Total Bilirubin 0.60, AST 11 L, ALT 15, Alkaline Phosphatase 42 L, Total Protein 6.6, Albumin 3.3, Globulin 3.3, Albumin/Globulin Ratio 1.0 Current Medications Acetaminophen (Tylenol) 650 mg PO Q6H PRN PRN PRN Reason: Pain 1-10/Temp > 100.7F Ferrous Sulfate (Ferrous Sulfate) 325 mg PO DAILY@1200 NATALI Last Admin: 12/28/19 12:14 Dose: 325 mg Documented by: Hydromorphone HCl (Dilaudid Inj) 0.5 - 1 mg IV Q3H PRN PRN PRN Reason: Pain Score 6-10/10 Last Admin: 12/26/19 01:06 Dose: 0.5 mg Documented by: Sodium Chloride () 250 mls @ 15 mls/hr IV .[id number] PRN PRN Reason: Saline Flush Sodium Chloride () 250 mls @ 15 mls/hr IV .[id number] PRN PRN Reason: Additional IVPB Infusion Ondansetron HCl (Zofran) 4 mg IV Q8H PRN PRN PRN Reason: NAUSEA/VOMITING Last Admin: 12/28/19 00:24 Dose: 4 mg Documented by: Oxycodone HCl (Oxyir) 5 mg PO Q6H PRN PRN PRN Reason: Pain Score 6-10/10 Last Admin: 12/26/19 11:38 Dose: 5 mg Documented by: Promethazine HCl (Phenergan) 12.5 mg IV Q6H PRN PRN PRN Reason: NAUSEA/VOMITING Last Admin: 12/26/19 15:29 Dose: 12.5 mg Documented by: Sodium Chloride () 10 - 40 ml IV UD PRN PRN Reason: SALINE FLUSH Last Admin: 12/28/19 00:24 Dose: 10 ml Documented by: Medical Necessity - Tobacco Use Smoking Status: Never smoker Tobacco Use: Non-smoker Assessment/Plan All Active Problems Ruptured tubal of right fallopian tube (Acute) Acute blood loss anemia (Acute) 29-year-old female status post appendectomy and ectopic evacuation Patient appears to be doing well this morning. She is tolerating clear liquid diet and reports positive flatus with no nausea or vomiting. I will stop her IV fluids and start a regular diet. If she tolerates that she is okay for discharge from my standpoint. Maximino Hay MD Pager: [facility] [address] [place] [address], [address] [place] [address] Office:
[2019-12-29 08:27] VITALS: BP 102/64; PULSE 81; RESP 16; TEMP 36.6; O2SAT 98
[2019-12-29] MEDS: 0.9% Saline Lock 10 ML Syringe IV (08:29)
[2019-12-29 08:35] VITALS: PULSE 84
--- NOTE | 2019-12-29 08:54 | PN.OBGYN_ITS ---
Patient Problems: Active and Suspected Problems Ruptured tubal of right fallopian tube (Acute) Acute blood loss anemia (Acute) Subjective: Tolerated CLD. Eating hot cereal for breakfast. Passing more gas. Pain nearly resolved. Objective: avss - Physical Exam Vitals/I&O's: Vital Signs Temp Pulse Resp BP Pulse Ox 97.9 F 81 16 102/64 98 12/29/19 08:27 12/29/19 08:27 12/29/19 08:27 12/29/19 08:27 12/29/19 08:27 Oxygen Delivery Method Room Air Weight: 55.2 kg Body Mass Index (BMI) 21.1 Intake and Output for Last 24 Hours 12/27/19 12/28/19 12/29/19 23:59 23:59 23:59 Intake Total 1620 / 1620 1976.50 / 2276.50 1960.0 / 1959.0 Output Total 3000 / 3000 Balance -1380 / -1380 50 / 2276.50 1959.0 / 1959.0 General: Alert, Oriented x3, Cooperative, No apparent distress HEENT: Atraumatic, Normocephalic Abdomen: Bowel Sounds Present, Soft, Non Tender, Non-Distended Extremities: No edema, No Calf Tenderness Neurological: Neuro grossly intact Psych/Mental Status: Normal Affect, Appropriate, Alert and oriented to time, place, person, mood and affect Laboratory Results 12/24/19 20:40: Crossmatch See Detail 12/28/19 08:24: Sodium 141, Potassium 3.6, Chloride 113 H, Carbon Dioxide 24.0, Anion Gap 4 L, BUN 11, Creatinine 0.48 L, Estim Creat Clear Calc 150.68, Est GFR (MDRD) Af Amer 196, Est GFR (MDRD) Non-Af 162, BUN/Creatinine Ratio 22.7 H, Glucose 87, Calcium 8.1 L 12/28/19 08:24: Troponin I < 0.015 12/28/19 08:24: Magnesium 2.0 12/28/19 13:55: Hgb 8.2 L, Hct 23.7 L 12/28/19 13:55: PT 16.8 H, INR 1.4, APTT 28.1 12/29/19 05:30: WBC 4.9, RBC 3.17 L, Hgb 9.1 L, Hct 27.3 L, MCV 86.1, MCH 28.7, MCHC 33.3, RDW Std Deviation 40.4, RDW Coeff of Shazia 13.2, Plt Count 277, MPV 10.1, Immature Gran % (Auto) 1.000 H, Neut % (Auto) 66.6, Lymph % (Auto) 23.4, [place] % (Auto) 5.1, Eos % (Auto) 3.5, Baso % (Auto) 0.4, Absolute Neuts (auto) 3.3, Absolute Lymphs (auto) 1.15, Nucleated RBC % 0 12/29/19 05:30: Sodium 140, Potassium 3.6, Chloride 109 H, Carbon Dioxide 27.0, Anion Gap 4 L, BUN 4 L, Creatinine 0.57, Estim Creat Clear Calc 126.89, Est GFR (MDRD) Af Amer 161, Est GFR (MDRD) Non-Af 133, BUN/Creatinine Ratio 7.0 L, Glucose 116 H, Calcium 8.8, Total Bilirubin 0.60, AST 11 L, ALT 15, Alkaline Phosphatase 42 L, Total Protein 6.6, Albumin 3.3, Globulin 3.3, Albumin/Globulin Ratio 1.0 Current Medications Acetaminophen (Tylenol) 650 mg PO Q6H PRN PRN PRN Reason: Pain 1-10/Temp > 100.7F Ferrous Sulfate (Ferrous Sulfate) 325 mg PO DAILY@1200 NATALI Last Admin: 12/28/19 12:14 Dose: 325 mg Documented by: Hydromorphone HCl (Dilaudid Inj) 0.5 - 1 mg IV Q3H PRN PRN PRN Reason: Pain Score 6-10/10 Last Admin: 12/26/19 01:06 Dose: 0.5 mg Documented by: Sodium Chloride () 250 mls @ 15 mls/hr IV .[id number] PRN PRN Reason: Saline Flush Sodium Chloride () 250 mls @ 15 mls/hr IV .[id number] PRN PRN Reason: Additional IVPB Infusion Ondansetron HCl (Zofran) 4 mg IV Q8H PRN PRN PRN Reason: NAUSEA/VOMITING Last Admin: 12/28/19 00:24 Dose: 4 mg Documented by: Oxycodone HCl (Oxyir) 5 mg PO Q6H PRN PRN PRN Reason: Pain Score 6-10/10 Last Admin: 12/26/19 11:38 Dose: 5 mg Documented by: Promethazine HCl (Phenergan) 12.5 mg IV Q6H PRN PRN PRN Reason: NAUSEA/VOMITING Last Admin: 12/26/19 15:29 Dose: 12.5 mg Documented by: Sodium Chloride () 10 - 40 ml IV UD PRN PRN Reason: SALINE FLUSH Last Admin: 12/29/19 08:29 Dose: 10 ml Documented by: Medical Necessity - Tobacco Use Smoking Status: Never smoker Tobacco Use: Non-smoker Assessment/Plan All Active Problems Ruptured tubal of right fallopian tube (Acute) Acute blood loss anemia (Acute) 29yo POD#5 s/p laparoscopic treatment of ruptured ectopic , appendectomy with acute blood loss anemia s/p blood transfusion with resolving post-op ileus -Diet advanced to regular -Ok for d/c home if tolerates diet from gynaecological oncologist standpoint -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
--- NOTE | 2019-12-29 09:09 | DCINST_ITS ---
- Discharge Diagnoses Current Active Problems: Current Active and Chronic Problems Ruptured tubal of right fallopian tube (Acute) Acute blood loss anemia (Acute) Reason(s) for Visit for Discharge Instructions: Abdominal pain You will use the following diet at home:: Regular Your food should be the consistency of: Regular Your liquids should be the consistency of: Regular/Thin Discharge Activity: Return to Normal Activity Instructions: Anemia, Pelvic Laparoscopy, Laparoscopic Appendectomy (Appendix Removal) Additional Instructions: Continue on oral iron and stool softners. Continue to take your vitamins. Follow-up with your primary care doctor within 2 weeks. Allergies/Adverse Reactions: Allergies No Known Allergies Allergy (Verified 12/24/19 20:06) Medications to take at Discharge Vits [Prenatabs FA ] 1 tab PO DAILY 12/24/19 Acetaminophen [Tylenol Tablet] 650 mg PO Q6H PRN PRN tab 12/29/19 Docusate Sodium [Colace] 100 mg PO DAILY 30 Days #30 cap 12/29/19 Ferrous Sulfate 325 mg PO DAILY@1200 #30 tab 12/29/19 Oxycodone [Oxyir] 5 mg PO Q6H PRN PRN 3 Days #10 tab 12/29/19 The following prescriptions were given: Ferrous Sulfate 325 mg PO DAILY@1200 #30 tab Transmission Status: Sent to [address] Oxycodone [Oxyir] 5 mg PO Q6H PRN PRN 3 Days #10 tab PRN Reason: Pain Score 6-10/10 Transmission Status: Pending to [address] Primary Care Physician: NOT,DEFINED [NON-STAFF] - Please follow up with your Primary Care Physician in: within 2 weeks Test Results: Test results from this visit will be discussed in further detail at your follow- up appointment, if applicable. Please Follow Up With: Lior Silva MD When: within 2 weeks Proposed Discharge Date: 12/29/19
--- NOTE | 2019-12-29 09:29 | PCM.DC.SUM ---
Discharge Date and Diagnosis Date of Admission: 12/25/19 Date of Discharge: 12/29/19 - Primary Discharge Diagnosis Active and Suspected Problems Ruptured tubal of right fallopian tube (Acute) Acute blood loss anemia (Acute) Postop ileus Hospital Course and Treatment Imaging Results: Clinical Impression(s) from Imaging Studies Obstetrics Ultrasound 12/24/19 20:28 IMPRESSION: Findings highly suspicious for an ectopic within the left adnexa. Complex free fluid concerning for hemoperitoneum. N.B. : The above information has been verbally conveyed by Ellen Dockery MD to Jeanne Madrid MD, on 12/24/2019 23:16:54 (ET). Electronically Signed: Ellen Dockery MD at 23:18 EST Tel , Service support , ADDENDUM: 12/24/19 2325 IMPRESSION: Findings highly suspicious for an ectopic within the left adnexa. Complex free fluid concerning for hemoperitoneum. N.B. : The above information has been verbally conveyed by Ellen Dockery MD to Jeanne Madrid MD, on 12/24/2019 23:16:54 (ET). Electronically Signed: Ellen Dockery MD at 23:18 EST Tel , Service support , Abdomen CTA 12/27/19 08:31 IMPRESSION: There are mildly dilated fluid-filled loops of small bowel, this may be due to ileus in the setting of recent surgery. There is no evidence of active hemorrhage. No hematoma. There is mild mesenteric edema and postsurgical changes noted of the anterior pelvic wall. Small amount of pneumoperitoneum. 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 Patient is 10 weeks and had an ultrasound obtained which was highly suspicious for ectopic with left adnexa findings concerning for hemoperitoneum. Her pain is started 24 hours prior to being seen. Patient was taken to surgery and there was a large amount of blood in the peritoneum along with a right tubal rupture from a tubal . Laparoscopic surgery was performed with removal of both fallopian tubes, removal of ectopic , lysis of adhesions and appendectomy by Dr. salazar. Estimated blood loss was more than 2 L. Patient was given 2 units of packed RBCs. She was initially admitted to the ICU. Postoperatively, she developed ileus and was managed conservatively. She continued to improve and had a slight drop in her hemoglobin 8.9 to 7.0 She was transfused 1 unit of packed RBC. Repeat hemoglobin was 8.7. Patient had repeat CT scan which was negative for rebleed. She continued to improve and was subsequently discharged in a stable condition. She was discharged on oral iron. Subjective: On the day of discharge, patient was seen and examined. Denies SOB, chest pain, palpitations. Her pain is controlled. Objective: Physical exam: General: Alert, Oriented x3, Cooperative, No apparent distress, - - pale, well hydrated HEENT: Atraumatic, PERRLA, EOMI, Normocephalic Oral: Moist Mucosa Neck: Supple Lungs: Clear to auscultation, Normal air movement Cardiovascular: Regular rate, Regular Rhythm, Normal S1, Normal S2, No murmurs Abdomen: Bowel Sounds Present, Soft, Non-Distended, No Hepato-splenomegaly, Tender - generalised, no guarding, laparoscopic dressings intact Extremities: No edema Skin: No rashes, No breakdown Musculoskeletal: No Tenderness to Palpation of Joints or Extremities Lymphatic: No Cervical, Supraclavicular, or Inguinal Adenopathy Neurological: Cranial nerves II-XII grossly intact, Neuro grossly intact Psych/Mental Status: Normal Affect, Appropriate - Physical Exam Vitals/I&O's: Vital Signs Temp Pulse Resp BP Pulse Ox 97.9 F 81 16 102/64 98 12/29/19 08:27 12/29/19 08:27 12/29/19 08:27 12/29/19 08:27 12/29/19 08:27 Oxygen Delivery Method Room Air Weight: 55.2 kg Body Mass Index (BMI) 21.1 Intake and Output for Last 24 Hours 12/27/19 12/28/19 12/29/19 23:59 23:59 23:59 Intake Total 1620 / 1620 / 2276.1959.0 1959.0 Output Total 3000 / 3000 Balance -1380 / -1380 2276.0 0 Laboratory Results 12/24/19 20:40: Crossmatch See Detail 12/28/19 13:55: Hgb 8.2 L, Hct 23.7 L 12/28/19 13:55: PT 16.8 H, INR 1.4, APTT 28.1 12/29/19 05:30: WBC 4.9, RBC 3.17 L, Hgb 9.1 L, Hct 27.3 L, MCV 86.1, MCH 28.7, MCHC 33.3, RDW Std Deviation 40.4, RDW Coeff of Shazia 13.2, Plt Count 277, MPV 10.1, Immature Gran % (Auto) 1.000 H, Neut % (Auto) 66.6, Lymph % (Auto) 23.4, [place] % (Auto) 5.1, Eos % (Auto) 3.5, Baso % (Auto) 0.4, Absolute Neuts (auto) 3.3, Absolute Lymphs (auto) 1.15, Nucleated RBC % 0 12/29/19 05:30: Sodium 140, Potassium 3.6, Chloride 109 H, Carbon Dioxide 27.0, Anion Gap 4 L, BUN 4 L, Creatinine 0.57, Estim Creat Clear Calc 126.89, Est GFR (MDRD) Af Amer 161, Est GFR (MDRD) Non-Af 133, BUN/Creatinine Ratio 7.0 L, Glucose 116 H, Calcium 8.8, Total Bilirubin 0.60, AST 11 L, ALT 15, Alkaline Phosphatase 42 L, Total Protein 6.6, Albumin 3.3, Globulin 3.3, Albumin/Globulin Ratio 1.0 Current Medications Acetaminophen (Tylenol) 650 mg PO Q6H PRN PRN PRN Reason: Pain 1-10/Temp > 100.7F Ferrous Sulfate (Ferrous Sulfate) 325 mg PO DAILY@1200 NATALI Last Admin: 12/28/19 12:14 Dose: 325 mg Documented by: Hydromorphone HCl (Dilaudid Inj) 0.5 - 1 mg IV Q3H PRN PRN PRN Reason: Pain Score 6-10/10 Last Admin: 12/26/19 01:06 Dose: 0.5 mg Documented by: Sodium Chloride () 250 mls @ 15 mls/hr IV .[id number] PRN PRN Reason: Saline Flush Sodium Chloride () 250 mls @ 15 mls/hr IV .[id number] PRN PRN Reason: Additional IVPB Infusion Ondansetron HCl (Zofran) 4 mg IV Q8H PRN PRN PRN Reason: NAUSEA/VOMITING Last Admin: 12/28/19 00:24 Dose: 4 mg Documented by: Oxycodone HCl (Oxyir) 5 mg PO Q6H PRN PRN PRN Reason: Pain Score 6-10/10 Last Admin: 12/26/19 11:38 Dose: 5 mg Documented by: Promethazine HCl (Phenergan) 12.5 mg IV Q6H PRN PRN PRN Reason: NAUSEA/VOMITING Last Admin: 12/26/19 15:29 Dose: 12.5 mg Documented by: Sodium Chloride () 10 - 40 ml IV UD PRN PRN Reason: SALINE FLUSH Last Admin: 12/29/19 08:29 Dose: 10 ml Documented by: Discharge Diet: No Restrictions Discharge Activity: Return to Normal Activity Home Medications: Medications to take at Discharge Vits [Prenatabs FA ] 1 tab PO DAILY 12/24/19 Acetaminophen [Tylenol Tablet] 650 mg PO Q6H PRN PRN tab 12/29/19 Docusate Sodium [Colace] 100 mg PO DAILY 30 Days #30 cap 12/29/19 Ferrous Sulfate 325 mg PO DAILY@1200 #30 tab 12/29/19 Oxycodone [Oxyir] 5 mg PO Q6H PRN PRN 3 Days #10 tab 12/29/19 Following Prescrptions Were Given to Patient: Docusate Sodium [Colace] 100 mg PO DAILY 30 Days #30 cap Transmission Status: Received by [id number] Ferrous Sulfate 325 mg PO DAILY@1200 #30 tab Transmission Status: Received by [facility] Oxycodone [Oxyir] 5 mg PO Q6H PRN PRN 3 Days #10 tab PRN Reason: Pain Score 6-10/10 Transmission Status: Received by [facility] Primary Care Physician: NOT,DEFINED [NON-STAFF] - Please follow up with your Primary Care Physician in: within 2 weeks Please Follow Up With: Lior Silva MD When: within 2 weeks Patient Instructions: Anemia, Pelvic Laparoscopy, Laparoscopic Appendectomy (Appendix Removal) Disposition: Home Minutes spent on discharge:: 42 Patient Condition:: Stable Medical Necessity - Tobacco Use Smoking Status: Never smoker Tobacco Use: Non-smoker Meaningful Use Info Meaningful Use Diagnoses (Choose all that apply): None applicable Code Visit Inpatient E&M: 22690 Disch Hosp
--- NOTE | 2019-12-29 09:33 | DS.PCM_ITS ---
Discharge Date and Diagnosis - Problem List Patient Problems: Active and Suspected Problems Ruptured tubal of right fallopian tube (Acute) Acute blood loss anemia (Acute) Date of Admission: 12/25/19 Date of Discharge: 12/29/19 - Primary Discharge Diagnosis Active and Suspected Problems Ruptured tubal of right fallopian tube (Acute) Acute blood loss anemia (Acute) Hospital Course and Treatment Summary of Care Provided: The patient is a 29 year old F [] Patient Problems: Active and Suspected Problems Ruptured tubal of right fallopian tube (Acute) Acute blood loss anemia (Acute) - Physical Exam Vitals/I&O's: Vital Signs Temp Pulse Resp BP Pulse Ox 97.9 F 81 16 102/64 98 12/29/19 08:27 12/29/19 08:27 12/29/19 08:27 12/29/19 08:27 12/29/19 08:27 Oxygen Delivery Method Room Air Weight: 55.2 kg Body Mass Index (BMI) 21.1 Intake and Output for Last 24 Hours 12/27/19 12/28/19 12/29/19 23:59 23:59 23:59 Intake Total 1620 / 1620 1976.50 / 2276.50 1960.0 / 1960.0 Output Total 3000 / 3000 Balance -1380 / -1380 2276.50 1959.0 / 1959.0 Laboratory Results 12/24/19 20:40: Crossmatch See Detail 12/28/19 13:55: Hgb 8.2 L, Hct 23.7 L 12/28/19 13:55: PT 16.8 H, INR 1.4, APTT 28.1 12/29/19 05:30: WBC 4.9, RBC 3.17 L, Hgb 9.1 L, Hct 27.3 L, MCV 86.1, MCH 28.7, MCHC 33.3, RDW Std Deviation 40.4, RDW Coeff of Shazia 13.2, Plt Count 277, MPV 10.1, Immature Gran % (Auto) 1.000 H, Neut % (Auto) 66.6, Lymph % (Auto) 23.4, [place] % (Auto) 5.1, Eos % (Auto) 3.5, Baso % (Auto) 0.4, Absolute Neuts (auto) 3.3, Absolute Lymphs (auto) 1.15, Nucleated RBC % 0 12/29/19 05:30: Sodium 140, Potassium 3.6, Chloride 109 H, Carbon Dioxide 27.0, Anion Gap 4 L, BUN 4 L, Creatinine 0.57, Estim Creat Clear Calc 126.89, Est GFR (MDRD) Af Amer 161, Est GFR (MDRD) Non-Af 133, BUN/Creatinine Ratio 7.0 L, Glucose 116 H, Calcium 8.8, Total Bilirubin 0.60, AST 11 L, ALT 15, Alkaline Phosphatase 42 L, Total Protein 6.6, Albumin 3.3, Globulin 3.3, Albumin/Globulin Ratio 1.0 Current Medications Acetaminophen (Tylenol) 650 mg PO Q6H PRN PRN PRN Reason: Pain 1-10/Temp > 100.7F Ferrous Sulfate (Ferrous Sulfate) 325 mg PO DAILY@1200 NATALI Last Admin: 12/28/19 12:14 Dose: 325 mg Documented by: Hydromorphone HCl (Dilaudid Inj) 0.5 - 1 mg IV Q3H PRN PRN PRN Reason: Pain Score 6-10/10 Last Admin: 12/26/19 01:06 Dose: 0.5 mg Documented by: Sodium Chloride () 250 mls @ 15 mls/hr IV .[id number] PRN PRN Reason: Saline Flush Sodium Chloride () 250 mls @ 15 mls/hr IV .[id number] PRN PRN Reason: Additional IVPB Infusion Ondansetron HCl (Zofran) 4 mg IV Q8H PRN PRN PRN Reason: NAUSEA/VOMITING Last Admin: 12/28/19 00:24 Dose: 4 mg Documented by: Oxycodone HCl (Oxyir) 5 mg PO Q6H PRN PRN PRN Reason: Pain Score 6-10/10 Last Admin: 12/26/19 11:38 Dose: 5 mg Documented by: Promethazine HCl (Phenergan) 12.5 mg IV Q6H PRN PRN PRN Reason: NAUSEA/VOMITING Last Admin: 12/26/19 15:29 Dose: 12.5 mg Documented by: Sodium Chloride () 10 - 40 ml IV UD PRN PRN Reason: SALINE FLUSH Last Admin: 12/29/19 08:29 Dose: 10 ml Documented by: Discharge Activity: Return to Normal Activity Home Medications: Medications to take at Discharge Vits [Prenatabs FA ] 1 tab PO DAILY 12/24/19 Acetaminophen [Tylenol Tablet] 650 mg PO Q6H PRN PRN tab 12/29/19 Docusate Sodium [Colace] 100 mg PO DAILY 30 Days #30 cap 12/29/19 Ferrous Sulfate 325 mg PO DAILY@1200 #30 tab 12/29/19 Oxycodone [Oxyir] 5 mg PO Q6H PRN PRN 3 Days #10 tab 12/29/19 Following Prescrptions Were Given to Patient: Docusate Sodium [Colace] 100 mg PO DAILY 30 Days #30 cap [facility] Status[facility] Ferrous Sulfate 325 mg PO DAILY@1200 #30 tab Transmission Status: Received by [facility] Oxycodone [Oxyir] 5 mg PO Q6H PRN PRN 3 Days #10 tab PRN Reason: Pain Score 6-10/10 Transmission Status: Received by [facility] Primary Care Physician: NOT,DEFINED [NON-STAFF] - Please follow up with your Primary Care Physician in: within 2 weeks Please Follow Up With: Lior Silva MD When: within 2 weeks Patient Instructions: Anemia, Pelvic Laparoscopy, Laparoscopic Appendectomy (Appendix Removal) Medical Necessity - Tobacco Use Smoking Status: Never smoker Tobacco Use: Non-smoker
[2019-12-29 11:24] VITALS: BP 110/70; PULSE 89; RESP 18; TEMP 36.7; O2SAT 99
[2019-12-29] MEDS: Ferrous Sulfate 325 MG Tablet PO (11:31)
== END 2019-12-29 12:00 | disposition home or self-care (01) | DRG 817 ==
LOC: ED 21:59 → MS3 12-25 01:47 → ICU 12-25 03:39 → MS3 12-25 12:09
PROVIDERS: Family Medicine; Hospitalist; Internal Medicine; Obstetrics & Gynecology; Surgery; Admitting Provider Obstetrics & Gynecology; Emergency Provider Emergency Medicine; Visit Provider Internal Medicine
PROC: 10T24ZZ Resection of Products of Conception, Ectopic, Percutaneous Endoscopic Approach (ICD-10-PCS; CPT 59150; principal; 2019-12-25 01:00)
PROC: 0DTJ4ZZ Resection of Appendix, Percutaneous Endoscopic Approach (ICD-10-PCS; CPT 44970; 2019-12-25 01:00)
DX: O00.102 Left tubal pregnancy without intrauterine pregnancy (principal); N80.2 Endometriosis of fallopian tube; K66.1 Hemoperitoneum; O08.0 Genital tract and pelvic infection following ectopic and molar pregnancy; D62 Acute posthemorrhagic anemia; O08.1 Delayed or excessive hemorrhage following ectopic and molar pregnancy; K56.7 Ileus, unspecified; K37 Unspecified appendicitis; R79.1 Abnormal coagulation profile; E87.6 Hypokalemia; Z3A.10 10 weeks gestation of pregnancy
CPT/HCPCS: 36415; 74175; 76817; 80048; 80053; 82962; 83735; 84484; 84702; 85014; 85018; 85025; 85027; 85610; 85730; 86850; 86900; 86901; 86920; 88304; 88305; 93005; 99285; J7030; J7040; P9016; Q9967; A4216; C1760; J2405; J7799

== ENCOUNTER → 2020-08-28 | Outpatient (CLI) | payer MEDICAID, SELFPAY ==
[2020-01-04 09:38] VITALS: BMI 19.5
[2020-09-03 07:44] LABS: Chlamydia By Nucleic Acid AMP Negative (Negative)
[2020-09-03 08:06] LABS: Gonococcus By Nucleic Acid AMP Negative (Negative)
== END | disposition home or self-care (01) ==
LOC: LABSPEC 16:09
PROVIDERS: Visit Provider Obstetrics & Gynecology
DX: Z11.3 Encounter for screening for infections with a predominantly sexual mode of transmission (principal)
CPT/HCPCS: 87491; 87591

== ENCOUNTER → 2020-12-17 08:33 | Outpatient (CLI) | payer MEDICAID, SELFPAY ==
[2020-01-04 09:38] VITALS: BMI 19.5
[2020-12-17 11:07] LABS: Hematocrit 37.1 % (37-47); Hemoglobin 12.7 g/dL (12.0-15.0); Mean Corp Hgb Conc 34.2 g/dL (32-36); Mean Corpuscular Hgb 31.7 pg (27.0-32.0); Mean Corpuscular Volume 92.5 fL (81-99); Platelet Count 192 K/mm3 (150-450); RBC Distribution Width CV 13.3 % (11.6-14.6); Red Blood Count 4.01 M/mm3 (4.2-5.4); White Blood Count 10.7 K/mm3 (4.4-11.0)
[2020-12-17 11:23] LABS: Glucose Challenge Gest 1H 50g 85 mg/dL (70-140)
== END ==
PROVIDERS: Visit Provider Obstetrics & Gynecology
DX: Z34.83 Encounter for supervision of other normal pregnancy, third trimester (principal)
CPT/HCPCS: 36415; 82950; 85027; 86850

== ENCOUNTER → 2021-02-13 16:27 | Outpatient (CLI) | payer MEDICAID, SELFPAY ==
[2020-01-04 09:38] VITALS: BMI 19.5
== END ==
PROVIDERS: PCP Family Medicine; Visit Provider Obstetrics & Gynecology
DX: Z36.85 Encounter for antenatal screening for Streptococcus B (principal)
CPT/HCPCS: 87081

== ENCOUNTER 2021-03-12 03:25 | Inpatient (IN) | payer MEDICAID, SELFPAY ==
[2020-01-04 09:38] VITALS: BMI 19.5
[2021-03-12] VITALS (22 sets, daily range): BP systolic 109–139; BP diastolic 68–96; PULSE 69–86; RESP 16–18; TEMP 36.6–37.2; O2SAT 97–99; BMI 25.7
[2021-03-12 03:57] LABS: ROM Internal Control Test YES-OK TO RESULT pt. (Internal QC); ROM Patient Test POSITIVE (Negative)
[2021-03-12 04:03] LABS: Absolute Lymphocyte Count 1.51 X10^3/uL (0.83-4.51); Absolute Neutrophil Count 9.9 X10^3/uL (2.0-7.7); Basophil# 0.05 X10^3/uL; Basophil% 0.4 % (0-1); Eosinophils% 0.8 % (0-5); Hematocrit 38.5 % (37-47); Hemoglobin 13.4 g/dL (12.0-15.0); Lymphocyte # 1.51 X10^3/ul (0.83-4.51); Lymphocyte % 12.2 % (19-41); Mean Corp Hgb Conc 34.8 g/dL (32-36); Mean Corpuscular Hgb 32.3 pg (27.0-32.0); Mean Corpuscular Volume 92.8 fL (81-99); Mean Platelet Vol. 11.5 fl (6.2-12.0); Monocyte# 0.76 X10^3/uL; Monocyte% 6.1 % (0-10); NRBC Flagged by Analyzer 0 % (0-5); Neutrophil % 79.7 % (47-70); Platelet Count 201 K/mm3 (150-450); RBC Distribution Width CV 12.1 % (11.6-14.6); RBC Distribution Width SD 40.9 fl (35.1-43.9); Red Blood Count 4.15 M/mm3 (4.2-5.4); White Blood Count 12.4 K/mm3 (4.4-11.0)
[2021-03-12] MEDS: Ondansetron 4 MG/2 ML Vial IV (04:49)
[2021-03-12] MEDS: 0.9% Saline Lock 10 ML Syringe IV ×2 (04:49→06:46)
--- NOTE | 2021-03-12 05:45 | HP.PCM_ITS ---
History and Physical Chief complaint: Contractions, leakage of fluid History of present illness: 30-year-old G5, P0 at 41 weeks and 0 days with JESSIE: 03/05/2021 by LMP arrives with contractions and leakage of clear fluid at 02 100. Denies headache, visual changes, chest pain, shortness of breath, nausea vomiting, right upper quadrant pain. Patient states good movement. complicated by IVF Obstetric history: G1: SAB 9 weeks 12/10/2018 G2: Ectopic 04/14/2019 G3: SAB 9 weeks 09/16/2019 G4: Ectopic 12/24/2019 G5: Current Past medical history: None Medications: vitamin Past surgical history: Diagnostic laparoscopy bilateral salpingectomy lysis of adhesions Allergies: No known drug allergies Social history: Denies a history of smoking, alcohol use, drug use Family history: Denies history of DVT or PE Review of systems: Besides above pertinent positives a full review of systems performed found to be negative Physical exam: Vital Signs Temp Pulse BP 03/12/21 04:52 73 139/88 H 03/12/21 04:40 98.7 F 73 132/96 H 03/12/21 03:09 98.7 F 72 134/88 H General: Normal-appearing no acute distress HEENT: Normocephalic atraumatic no cervical lymphadenopathy Cardiac/respiratory: Nonlabored breathing, no use of accessory muscles Abdomen: Soft, nontender, gravid Pelvic exam: Cervical exam unchanged, AROM for bag clear fluid Extremities: No peripheral edema normal peripheral pulses Psych: Normal affect, normal demeanor nonpressured speech Mom's Labs & Results 03/12/21 03/12/21 03/12/21 03:20 03:50 03:50 WBC 12.4 H RBC 4.15 L Hgb 13.4 Hct 38.5 MCV 92.8 MCH 32.3 H MCHC 34.8 RDW Std Deviation 40.9 RDW Coeff of Shazia 12.1 Plt Count 201 MPV 11.5 Immature Gran % (Auto) 0.800 Neut % (Auto) 79.7 H Lymph % (Auto) 12.2 L [place] % (Auto) 6.1 Eos % (Auto) 0.8 Baso % (Auto) 0.4 Absolute Neuts (auto) 9.9 H Absolute Lymphs (auto) 1.51 Nucleated RBC % 0 Vag Amniotic Fld Detect POSITIVE H Blood Type O NEGATIVE Antibody Screen NEGATIVE Labs Blood Type: O RH: NEGATIVE RPR/VDRL/Syphilis Nonreactive HbSAg Negative Date Done: 08/06/20 Chlamydia Negative Gonorrhea Negative HIV/AIDS Non-Reactive Group B Strep: Negative Other Lab Procedures/Results/ rubella not found-will update with result Comments: Assessment plan: 30-year-old G5, P0 at 41 weeks and 0 days arrives with SROM and labor. -Admit labor and delivery -CEFM -GBS negative -Routine orders -Anesthesia see
[2021-03-12] MEDS: proCHLORPERazine 10 MG/2 ML Vial IV (06:44)
[2021-03-12] MEDS: Oxytocin 30 units/NS 500 ml 30 UNITS/500 ML IV.SOLN 334 UNITS IV (10:06)
--- NOTE | 2021-03-12 10:34 | OP.PCM_ITS ---
Vaginal Delivery Date of Procedure: 03/12/21 Pre-Operative Diagnosis: Term Post-Operative Diagnosis: Term Surgery/ Procedure Performed: Spontaneous Vaginal Delivery Type of Anesthesia: Local with 1% lidocaine Description of Procedure: Normal spontaneous vaginal delivery of a viable female infant, vertex YULIA. Head and shoulders delivered with ease. Cord cut clamped. Baby handed off to nursing. Placenta delivered via cord traction and fundal massage. Second- degree midline perineal laceration and left labial laceration noted and repaired in typical fashion. EBL 300 cc Apgars 8/9
--- NOTE | 2021-03-12 10:36 | DCINST_ITS ---
Discharge Diet: No Restrictions Discharge Activity: Return to Normal Activity, May Drive, May Shower May resume sexual activity in: 4-6 weeks Weight Bearing Status: Weight bearing as tolerated Call your doctor if your incision/area has: Continuous Slow Oozing, Foul Smelling Discharge Call your doctor if you observe: Fever of 101 or Higher, Shortness of breath, Chest pain Additional Instructions: If you experience any of the following, contact your healthcare provider. * Bleeding that soaks a pad every hour for 2 hours * Fever 100.4 or higher * Unrelieved incision or abdominal pain * Swelling, redness, discharge or bleeding from your incision or episiotomy site * Your incision begins to separate * Problems urinating (including inability to urinate or burning while urinating). * Visual changes * Severe headache * Flu-like symptoms * Pain or redness in one of both of your breasts * Pain, warmth, tenderness or swelling in your legs, especially the calf area * Frequent nausea and vomiting * Symptoms of depression or anxiety If you experience any of the following, call 911 or go to the nearest Emergency Room. * Chest pain * Problems breathing * Seizure activity * Partial or complete paralysis of a body part, slurred speech, weakness or drooping of the face, or a sudden inability to walk or hold your balance Allergies/Adverse Reactions: Allergies No Known Allergies Allergy (Verified 01/04/20 09:35) Medications to take at Discharge Vits [Prenatabs FA ] 1 tab PO DAILY 12/24/19 Acetaminophen [Tylenol Tablet] 650 mg PO Q6H PRN PRN tab 12/29/19 Ferrous Sulfate 325 mg PO DAILY@1200 #30 tab 12/29/19 Ascorbic Acid [Vitamin C] 500 mg PO DAILY@0800 01/04/20 Vitamin B Complex [B Complex] 1 ea PO 01/04/20 Vitamin D3 5,000 iu PO QODAY 01/04/20 Please Follow Up With: Florencio Orozco MD When: 3 week telehealth visit, 6 week visit Primary Care Physician: Rodrigo Davidson MD [Primary Care Provider] - Test Results: Test results from this visit will be discussed in further detail at your follow- up appointment, if applicable.
[2021-03-12] MEDS: Ibuprofen 600 MG Tablet PO ×2 (10:48→22:12)
--- NOTE | 2021-03-12 21:18 | NURSING ---
pt has additional approximated second degree left labial laceration
[2021-03-13 03:20] VITALS: BP 106/70; PULSE 72; RESP 18; TEMP 37
--- NOTE | 2021-03-13 07:11 | PN.OBGYN_ITS ---
Subjective: No overnight complaints. Pain well controlled. - Physical Exam Vitals/I&O's: Vital Signs Temp Pulse Resp BP Pulse Ox 98.6 F 72 18 106/70 97 03/13/21 03:20 03/13/21 03:20 03/13/21 03:20 03/13/21 03:20 03/12/21 11:55 Oxygen Delivery Method Room Air Weight: 149 lb 14.629 oz Body Mass Index (BMI) 25.7 Intake and Output for Last 24 Hours 03/11/21 03/12/21 03/13/21 23:59 23:59 23:59 Intake Total 500 / 500 Output Total 800 / 800 Balance -300 / -300 General: Alert, Oriented x3, Cooperative, No apparent distress HEENT: Atraumatic Oral: Moist Mucosa Neck: Supple Extremities: No clubbing, No cyanosis Neurological: Neuro grossly intact Psych/Mental Status: Normal Affect, Appropriate, Alert and oriented to time, place, person, mood and affect Current Medications Acetaminophen (Acetaminophen 500 Mg Tablet) 1,000 mg PO Q8H PRN PRN PRN Reason: Pain Score 1-10 Bisacodyl (Bisacodyl 10 Mg Suppository) 10 mg RC UD PRN PRN Reason: If no BM Dibucaine (Dibucaine 30 Gm Tube) 1 applic TOPICAL TID PRN PRN; Protocol PRN Reason: Discomfort Hydrocortisone (Hydrocortisone 2.5% Crm) 1 applic TOPICAL TID PRN PRN; Protocol PRN Reason: Discomfort Ibuprofen (Ibuprofen 600 Mg Tablet) 600 mg PO Q6H PRN PRN PRN Reason: Pain Score 1-10 Last Admin: 03/12/21 22:12 Dose: 600 mg Documented by: Ondansetron HCl (Ondansetron 4 Mg/2 Ml Vial) 4 mg IV Q4H PRN PRN PRN Reason: Nausea Senna/Docusate Sodium (Senna/Docusate Sodium 1 Tablet) 1 - 2 tablet PO DAILY PRN PRN PRN Reason: Constipation Simethicone (Simethicone 80 Mg Tablet) 80 mg PO PCHS PRN PRN Reason: Indigestion/Stomach pain Sodium Chloride (0.9% Saline Lock 10 Ml Syringe) 5 - 15 ml IV UD PRN PRN Reason: SALINE FLUSH Medical Necessity - Tobacco Use Smoking Status: Never smoker Assessment/Plan All Active Problems (Last Updated 01/04/20 @ 09:37 by Zunilda Hernandez) Ruptured tubal of right fallopian tube (Acute) Acute blood loss anemia (Acute) Abnormal coagulation profile (Acute) Iron deficiency anemia (Acute) day 1. Breast-feeding. Pain well controlled. Okay to discharge home today if okay with food and beverage attendant
[2021-03-13 07:47] VITALS: BP 111/79; PULSE 94; RESP 16; TEMP 36.4
[2021-03-13] MEDS: Ibuprofen 600 MG Tablet PO (11:48)
[2021-03-13 14:36] VITALS: BP 119/80; PULSE 97; RESP 16; TEMP 36.7
== END 2021-03-13 15:35 | disposition home or self-care (01) | DRG 560 ==
LOC: WPOUT 03:28 → WP 03:28
PROVIDERS: Admitting Provider Obstetrics & Gynecology; PCP Family Medicine; Visit Provider Obstetrics & Gynecology
DX: O48.0 Post-term pregnancy (principal); O70.1 Second degree perineal laceration during delivery; O99.02 Anemia complicating childbirth; D50.9 Iron deficiency anemia, unspecified; Z79.899 Other long term (current) drug therapy; Z3A.41 41 weeks gestation of pregnancy; Z37.0 Single live birth
CPT/HCPCS: 59025; 59050; 84112; 85025; 86850; 86900; 86901; 99218; A4216; G0378; J2405

== ENCOUNTER → 2024-11-14 | Outpatient (CLI) | payer MEDICAID, SELFPAY ==
[2024-11-14 11:43] LABS: Absolute Lymphocyte Count 0.93 X10^3/uL (0.83-4.51); Absolute Neutrophil Count 2.5 X10^3/uL (2.0-7.7); Basophil# 0.05 X10^3/uL; Basophil% 1.3 % (0-1); Eosinophil# 0.16 X10^3/uL; Hematocrit 40.4 % (37-47); Hemoglobin 13.4 g/dL (12.0-15.0); Lymphocyte # 0.93 X10^3/ul (0.83-4.51); Lymphocyte % 23.4 % (19-41); Mean Corp Hgb Conc 33.2 g/dL (32-36); Mean Corpuscular Hgb 30.1 pg (27.0-32.0); Mean Corpuscular Volume 90.8 fL (81-99); Mean Platelet Vol. 11.7 fl (6.2-12.0); Monocyte% 7.5 % (0-10); NRBC Flagged by Analyzer 0 % (0-5); Neutrophil # 2.51 X10^3/uL (2.7-7.7); Platelet Count 221 K/mm3 (150-450); RBC Distribution Width SD 40.1 fl (35.1-43.9); Red Blood Count 4.45 M/mm3 (4.2-5.4)
[2024-11-14 11:48] LABS: Erythrocyte Sedimentation Rate < 1 mm/hr (0-30)
[2024-11-14 12:03] LABS: ALB/GLOB Ratio 1.2 RATIO (0.9-2.4); AST(SGOT) 13 U/L (15-37); Alanine Aminotransfer ALT/SGPT 21 U/L (13-56); Albumin, Serum 4.1 g/dL (3.2-5.0); Alkaline Phosphatase 48 U/L (45-117); Anion Gap 3 (5-15); BUN 15 mg/dL (7-18); BUN/Creat Ratio 19.5 RATIO (10-20); Calcium,Total 8.9 mg/dL (8.5-10.1); Chloride 107 mmol/L (98-107); Creatinine, Serum 0.77 mg/dL (0.55-1.02); EST Glomerular Filtration Rate 92 mL/min (>60); Est Glom Filt Rate - Afr Amer 111 mL/min (>60); Globulin 3.3 g/dL (2.2-4.2); Glucose 91 mg/dL (74-106); Magnesium 2.4 mg/dL (1.6-2.6); Potassium 3.4 mmol/L (3.5-5.1); Protein, Total 7.4 g/dL (6.4-8.2); Sodium Level 139 mmol/L (136-145)
== END | disposition home or self-care (01) ==
LOC: MFPLAB 09:39
PROVIDERS: PCP Family Medicine; Referring Provider Family Medicine; Visit Provider Family Medicine
DX: G43.909 Migraine, unspecified, not intractable, without status migrainosus (principal)
CPT/HCPCS: 36415; 80053; 83735; 84443; 85025; 85652

== ENCOUNTER → 2024-12-04 | Outpatient (CLI) | payer MEDICAID, SELFPAY ==
--- NOTE | 2024-12-04 06:47 | MRI_ITS ---
STUDY: MRI BRAIN WITHOUT CONTRAST REASON FOR EXAM: Female, 34 years old. worsening migraines. L sided TECHNIQUE: Standardized multiplanar fat and water weighted pulse sequences were obtained. COMPARISON: None. FINDINGS: Normal size of the ventricles and extra-axial spaces for the patient''s age. Normal white matter tracts of the supratentorial brain. Normal bilateral basal ganglia. Normal thalami. There is no extra-axial fluid accumulation. Normal flow voids within the major intracranial circulation suggesting patency by spin echo criteria. Normal sella turcica, pituitary gland, infundibular stalk, optic chiasm and hypothalamus. Normal tectal plate and pineal gland. Normal midbrain, hans and medulla. Normal cerebellum. Normal basal cisterns. Normal bilateral temporal bones. Normal bilateral internal auditory canals. No demonstrated orbital abnormality, within the constraints of a routine brain study. Normal visualized paranasal sinuses. Normal calvarium and skull base. Normal visualized soft tissue structures. Normal visualized upper cervical spine. MRI/Brain without Contrast IMPRESSION: Normal unenhanced MRI of the brain. Electronically Signed: Robert Cano MD at 16:07 EST ,
== END | disposition home or self-care (01) ==
LOC: MRI 06:21
PROVIDERS: PCP Family Medicine; Referring Provider Family Medicine; Visit Provider Family Medicine
DX: G43.909 Migraine, unspecified, not intractable, without status migrainosus (principal)
CPT/HCPCS: 70551